=== PATIENT | female | born 1955 | race Two or more races ===

== ENCOUNTER 2016-04-19 08:02 | Inpatient (IN) | payer MEDICAID ==
[~2016-04-19] VITALS: Ht 152.4 cm; Wt 101.3 kg
[~2016-04-19 08:02] MED LIST: ASPI81CH43 PO; ATOR20TA50 PO; ENAL-3; GABA-494; GABA300C8 OR; GLIP-116 OR; INSLISPI SC; LANTUS; METF-316 OR; METO50TA7 PO
[2016-04-19 08:55] LABS: Basophils # (auto) 0 uL; Basophils % (auto) 0.2 % (0.0-2.0); Eosinophils # (auto) 0.2 uL; Eosinophils % (auto) 1.8 % (0.0-7.0); Hematocrit 36.3 % (36.0-46.0); Hemoglobin 11.6 g/dL (12.2-16.2); Lymphocytes % (auto) 16.9 % (10.0-50.0); Mean Corpuscular Hemoglobin 27.9 pg (28.0-32.0); Mean Corpuscular Volume 87.2 fL (80.0-100.0); Mean Platelet Volume 9.1 fL (7.4-10.4); Monocytes # (auto) 0.6 uL; Monocytes % (auto) 4.9 % (0.0-12.0); Neutrophils # (auto) 9.1 uL; Neutrophils % (auto) 76.2 % (37.0-80.0); Platelet Count (auto) 388 10^3/uL (140-450); Red Cell Distribution Width 13.7 % (11.6-16.0); White Blood Cell 11.9 10^3/uL (4.4-10.8)
[2016-04-19 09:37] LABS: Albumin 3.3 g/dL (3.4-5.0); BUN/Creatinine Ratio 18.8; Bilirubin, Total 0.6 mg/dL (0.2-1.0); Calcium 9.2 mg/dL (8.5-10.1); Potassium 4.6 mmol/L (3.5-5.1); Total Protein 7.6 g/dL (6.4-8.2)
[2016-04-19] MEDS ORDERED: ONDANSETRON HCL 4 MG/2 ML VIAL IV ONE (13:15)
[2016-04-19] MEDS ORDERED: MORPHINE SULF INJ 2 MG/ML SYRINGE 1ML IV ONE (13:15)
[2016-04-19] MEDS: metroNIDAZOLE 500MG/100ML 100 ML IV ONE ×2 (14:20→14:30)
[2016-04-19] MEDS ORDERED: DEXTROSE (50%) 50ML SYRG IV PRN (14:30)
[2016-04-19] MEDS ORDERED: MORPHINE SULF INJ 2 MG/ML SYRINGE 1ML IV PRN ×2 (14:30)
[2016-04-19] MEDS ORDERED: HYDROcodone-ACET 5/325MG TAB PO PRN (14:30)
[2016-04-19] MEDS ORDERED: NITROGLYCERIN 0.4 MG SL TAB SL PRN (14:30)
[2016-04-19] MEDS: SODIUM CHLORIDE 0.9% 1,000 ML IV SCH (14:43)
[2016-04-19] MEDS: cefTRIAXone 1GM/50ML D5W 50 ML IV ONE ×2 (14:59→15:00)
[2016-04-19] MEDS: ACCU-CHEK COMFORT CURVE STRIP VI SCH (17:40)
[2016-04-19] MEDS: InsuLIN REG 1unit/0.01ml Soln (100units/ml) SC SCH (17:41)
[2016-04-19] MEDS: ONDANSETRON HCL 4 MG/2 ML VIAL IV PRN (20:06)
[2016-04-19] MEDS: metroNIDAZOLE 500MG/100ML 100 ML IV SCH (21:31)
[2016-04-19 22:00] VITALS: BP 123/63
[2016-04-19] MEDS ORDERED: INSLANTI SC (22:22)
[2016-04-19 22:34] VITALS: BP 123/67
[2016-04-20] VITALS (7 sets, daily range): BP systolic 116–144; BP diastolic 59–73
[2016-04-20] MEDS: InsuLIN REG 1unit/0.01ml Soln (100units/ml) SC SCH ×4 (00:01→18:00)
[2016-04-20] MEDS: SODIUM CHLORIDE 0.9% 1,000 ML IV SCH ×3 (00:01→20:30)
[2016-04-20] MEDS: ACCU-CHEK COMFORT CURVE STRIP VI SCH ×4 (00:01→17:35)
[2016-04-20] MEDS: metroNIDAZOLE 500MG/100ML 100 ML IV SCH ×3 (06:28→21:56)
[2016-04-20] MEDS: ONDANSETRON HCL 4 MG/2 ML VIAL IV PRN ×2 (06:29→17:45)
[2016-04-20 06:39] LABS: Basophils # (auto) 0 uL; Basophils % (auto) 0.1 % (0.0-2.0); Eosinophils # (auto) 0.2 uL; Eosinophils % (auto) 2.6 % (0.0-7.0); Hematocrit 31.4 % (36.0-46.0); Hemoglobin 9.9 g/dL (12.2-16.2); Lymphocytes # (auto) 2.2 uL; Lymphocytes % (auto) 25.1 % (10.0-50.0); Mean Corpuscular Hemoglobin 27.6 pg (28.0-32.0); Mean Corpuscular Hgb Conc. 31.3 g/dL (32.0-36.0); Mean Platelet Volume 9.4 fL (7.4-10.4); Monocytes # (auto) 0.4 uL; Monocytes % (auto) 4.9 % (0.0-12.0); Neutrophils # (auto) 5.9 uL; Neutrophils % (auto) 67.3 % (37.0-80.0); Platelet Count (auto) 323 10^3/uL (140-450); Red Cell Distribution Width 14.1 % (11.6-16.0); White Blood Cell 8.7 10^3/uL (4.4-10.8)
[2016-04-20 06:49] LABS: INR 0.97 (0.9-1.15); Partial Thromboplastin Time 29.3 sec (22.64-33.71)
[2016-04-20 08:44] LABS: BUN/Creatinine Ratio 21.3; Calcium 8.4 mg/dL (8.5-10.1); Potassium 4.6 mmol/L (3.5-5.1)
[2016-04-20] MEDS: cefTRIAXone 1GM/50ML D5W 50 ML IV SCH (10:59)
[2016-04-21] VITALS (7 sets, daily range): BP systolic 136–179; BP diastolic 61–77
[2016-04-21] MEDS: ACCU-CHEK COMFORT CURVE STRIP VI SCH ×4 (00:12→18:19)
[2016-04-21] MEDS: InsuLIN REG 1unit/0.01ml Soln (100units/ml) SC SCH ×4 (00:15→18:19)
[2016-04-21] MEDS: ONDANSETRON HCL 4 MG/2 ML VIAL IV PRN ×2 (04:55→12:29)
[2016-04-21] MEDS: SODIUM CHLORIDE 0.9% 1,000 ML IV SCH ×2 (05:00→16:52)
[2016-04-21] MEDS: metroNIDAZOLE 500MG/100ML 100 ML IV SCH (06:07)
[2016-04-21 06:47] LABS: Basophils # (auto) 0 uL; Basophils % (auto) 0.5 % (0.0-2.0); Eosinophils # (auto) 0.3 uL; Eosinophils % (auto) 3.3 % (0.0-7.0); Hematocrit 31.6 % (36.0-46.0); Hemoglobin 9.9 g/dL (12.2-16.2); Lymphocytes # (auto) 2.7 uL; Mean Corpuscular Hemoglobin 27.4 pg (28.0-32.0); Mean Corpuscular Hgb Conc. 31.4 g/dL (32.0-36.0); Mean Corpuscular Volume 87.2 fL (80.0-100.0); Monocytes # (auto) 0.4 uL; Monocytes % (auto) 5.8 % (0.0-12.0); Neutrophils # (auto) 4.1 uL; Neutrophils % (auto) 54.4 % (37.0-80.0); Platelet Count (auto) 361 10^3/uL (140-450); Red Cell Distribution Width 13.7 % (11.6-16.0); White Blood Cell 7.6 10^3/uL (4.4-10.8)
[2016-04-21 08:25] LABS: BUN/Creatinine Ratio 15.1; Calcium 8.5 mg/dL (8.5-10.1); Potassium 3.8 mmol/L (3.5-5.1)
[2016-04-21] MEDS: cefTRIAXone 1GM/50ML D5W 50 ML IV SCH (09:11)
[2016-04-21] MEDS: metroNIDAZOLE 500 MG TAB PO SCH ×2 (13:06→22:18)
[2016-04-21] MEDS ORDERED: ENALAPRIL MALEATE 10 MG TAB PO ONE (16:30)
[2016-04-22] MEDS: ACCU-CHEK COMFORT CURVE STRIP VI SCH ×3 (00:20→11:55)
[2016-04-22] MEDS: InsuLIN REG 1unit/0.01ml Soln (100units/ml) SC SCH ×3 (00:23→11:55)
[2016-04-22] MEDS: SODIUM CHLORIDE 0.9% 1,000 ML IV SCH ×2 (02:30→12:30)
[2016-04-22 05:00] VITALS: BP 129/77
[2016-04-22] MEDS: metroNIDAZOLE 500 MG TAB PO SCH ×2 (05:54→14:00)
[2016-04-22 06:01] LABS: Basophils # (auto) 0 uL; Basophils % (auto) 0.5 % (0.0-2.0); Eosinophils # (auto) 0.2 uL; Eosinophils % (auto) 2.5 % (0.0-7.0); Hematocrit 32.2 % (36.0-46.0); Hemoglobin 10.2 g/dL (12.2-16.2); Lymphocytes # (auto) 2.9 uL; Lymphocytes % (auto) 35.1 % (10.0-50.0); Mean Corpuscular Hemoglobin 27.6 pg (28.0-32.0); Mean Corpuscular Hgb Conc. 31.6 g/dL (32.0-36.0); Mean Corpuscular Volume 87.4 fL (80.0-100.0); Mean Platelet Volume 8.9 fL (7.4-10.4); Monocytes # (auto) 0.4 uL; Monocytes % (auto) 5.5 % (0.0-12.0); Neutrophils # (auto) 4.6 uL; Neutrophils % (auto) 56.4 % (37.0-80.0); Platelet Count (auto) 344 10^3/uL (140-450); White Blood Cell 8.1 10^3/uL (4.4-10.8)
[2016-04-22 08:00] VITALS: BP 104/48
[2016-04-22] MEDS: ONDANSETRON HCL 4 MG/2 ML VIAL IV PRN (08:03)
[2016-04-22 09:00] VITALS: BP 139/67
[2016-04-22] MEDS: cefTRIAXone 1GM/50ML D5W 50 ML IV SCH (09:18)
[2016-04-22] MEDS ORDERED: ENALAPRIL MALEATE 10 MG TAB PO SCH (10:00)
[2016-04-22 11:50] VITALS: BP 146/94
[2016-04-22 13:03] VITALS: BP 139/67
== END 2016-04-22 15:20 | disposition home or self-care (01) | DRG 244 ==
LOC: ER 08:10 → TELE 08:11 → TELE-WESTW 19:36
PROVIDERS: ADMIT Internal Medicine; ATTEND Internal Medicine
DX: K57.32 Diverticulitis of large intestine without perforation or abscess without bleeding (principal); E11.22 Type 2 diabetes mellitus with diabetic chronic kidney disease; N18.3 Chronic kidney disease, stage 3 (moderate); E66.01 Morbid (severe) obesity due to excess calories; E11.65 Type 2 diabetes mellitus with hyperglycemia; I12.9 Hypertensive chronic kidney disease with stage 1 through stage 4 chronic kidney disease, or unspecified chronic kidney disease; E78.5 Hyperlipidemia, unspecified; Z86.73 Personal history of transient ischemic attack (TIA), and cerebral infarction without residual deficits; Z88.5 Allergy status to narcotic agent; Z79.82 Long term (current) use of aspirin; Z79.4 Long term (current) use of insulin; Z79.899 Other long term (current) drug therapy; Z98.51 Tubal ligation status; Z90.49 Acquired absence of other specified parts of digestive tract; Z82.49 Family history of ischemic heart disease and other diseases of the circulatory system; Z83.3 Family history of diabetes mellitus; Z68.41 Body mass index [BMI] 40.0-44.9, adult
CPT/HCPCS: 36415; 74176; 80048; 80053; 82962; 83036; 85025; 85610; 85730; 87493; 94761; 96365; 96367; 96375; J0696; J1815; J2405; J3490

== ENCOUNTER 2016-08-16 15:14 | Emergency (ER) | payer MEDICAID ==
[~2016-08-16] VITALS: Ht 152.4 cm; Wt 77.1 kg
[~2016-08-16 15:14] MED LIST changes: -GABA300C8 OR; -GLIP-116 OR; +INSLANTI SC; -INSLISPI SC; -LANTUS; -METF-316 OR
[2016-08-16 16:22] LABS: Basophils # (auto) 0 uL; Basophils % (auto) 0.4 % (0.0-2.0); Eosinophils # (auto) 0.1 uL; Eosinophils % (auto) 0.9 % (0.0-7.0); Hematocrit 37.7 % (36.0-46.0); Hemoglobin 12.4 g/dL (12.2-16.2); Lymphocytes # (auto) 2.3 uL; Lymphocytes % (auto) 25.1 % (10.0-50.0); Mean Corpuscular Hemoglobin 28.5 pg (28.0-32.0); Mean Corpuscular Hgb Conc. 33.1 g/dL (32.0-36.0); Mean Corpuscular Volume 86.3 fL (80.0-100.0); Mean Platelet Volume 8.9 fL (7.4-10.4); Monocytes # (auto) 0.4 uL; Monocytes % (auto) 4.8 % (0.0-12.0); Neutrophils # (auto) 6.3 uL; Neutrophils % (auto) 68.8 % (37.0-80.0); Platelet Count (auto) 414 10^3/uL (140-450); White Blood Cell 9.1 10^3/uL (4.4-10.8)
[2016-08-16 16:35] LABS: Potassium 4.2 mmol/L (3.5-5.1)
[2016-08-16 16:41] LABS: Albumin 3.2 g/dL (3.4-5.0); BUN/Creatinine Ratio 21.6; Calcium 9.4 mg/dL (8.5-10.1)
[2016-08-16 16:44] LABS: Bilirubin, Total 0.5 mg/dL (0.2-1.0); Total Protein 7.7 g/dL (6.4-8.2)
[2016-08-17 01:10] LABS: Urine Bilirubin Negative (Negative); Urine Blood Negative /uL (Negative); Urine Color Yellow (Yellow); Urine Glucose 1+ mg/dL (Normal); Urine Hyaline Cast FEW /lpf (0 - 2); Urine Ketone TRACE (Negative); Urine Mucus FEW (None Seen); Urine Nitrite Negative (Negative); Urine RBC 3 /hpf (0 - 4); Urine Squamous Epithelial Cell MOD /hpf (<5); Urine pH 5.5 (5.0-8.0)
[2016-08-17] MEDS ORDERED: ONDANSETRON HCL 4 MG/2 ML VIAL IV ONE (02:45)
[2016-08-17] MEDS ORDERED: cefTRIAXone SOD 500 MG VL IV ONE (02:45)
[2016-08-17] MEDS ORDERED: SODIUM CHLORIDE 0.9% 1,000 ML IV ONE (02:45)
[2016-08-17] MEDS ORDERED: cefTRIAXone 1GM/50ML D5W 50 ML IV ONE (03:00)
[2016-08-17] MEDS ORDERED: metroNIDAZOLE 500MG/100ML 100 ML IV ONE (03:15)
[2016-08-17 06:26] VITALS: BP 147/56
== END 2016-08-17 06:25 | disposition home or self-care (01) ==
LOC: EDBD 15:27 → ER 15:27
DX: K52.9 Noninfective gastroenteritis and colitis, unspecified (principal); K29.70 Gastritis, unspecified, without bleeding; N39.0 Urinary tract infection, site not specified; E11.9 Type 2 diabetes mellitus without complications; E78.5 Hyperlipidemia, unspecified; I10 Essential (primary) hypertension; R42 Dizziness and giddiness; Z88.6 Allergy status to analgesic agent; Z79.899 Other long term (current) drug therapy; Z79.4 Long term (current) use of insulin; Z79.82 Long term (current) use of aspirin; Z98.51 Tubal ligation status; Z90.49 Acquired absence of other specified parts of digestive tract
CPT/HCPCS: 36415; 74176; 80053; 81001; 82962; 83690; 85025; 93005; 96365; 96367; 96375; 99285; J0696; J2405; J3490; J7030

== ENCOUNTER 2017-12-24 13:24 | Emergency (ER) | payer MEDICAID ==
[~2017-12-24] VITALS: Ht 152.4 cm; Wt 77.1 kg
[~2017-12-24 13:24] MED LIST changes: -GABA-494; +GABA100C9; +MET5XLT PO; -METO50TA7 PO
[2017-12-24 16:07] VITALS: BP 134/70
[2017-12-24] MEDS ORDERED: KETOROLAC TROMETH 60MG/2ML VIAL IM ONE ×2 (16:45→16:46)
[2017-12-24] MEDS ORDERED: DEXAMETHASONE SOD PHOS 10MG/1ML VIAL INJ ONE (16:45)
[2017-12-24] MEDS ORDERED: DEXAMETHASONE SOD PHOS 10MG/1ML VIAL INJ IM ONE (16:45)
== END 2017-12-24 16:40 | disposition home or self-care (01) ==
LOC: ER 13:24
DX: M16.12 Unilateral primary osteoarthritis, left hip (principal); M54.32 Sciatica, left side; E11.9 Type 2 diabetes mellitus without complications; E78.5 Hyperlipidemia, unspecified; I10 Essential (primary) hypertension; Z90.49 Acquired absence of other specified parts of digestive tract; Z98.51 Tubal ligation status; Z88.6 Allergy status to analgesic agent
CPT/HCPCS: 73502; 96372; 99284; J1100; J1885

== ENCOUNTER 2018-01-10 15:28 | Emergency (ER) | payer MEDICAID ==
[~2018-01-10] VITALS: Ht 152.4 cm; Wt 77.1 kg
[2018-01-10 16:05] VITALS: BP 110/83
== END 2018-01-10 17:02 | disposition home or self-care (01) ==
LOC: ER 15:35
DX: L03.211 Cellulitis of face (principal); M25.552 Pain in left hip; E11.9 Type 2 diabetes mellitus without complications; E78.5 Hyperlipidemia, unspecified; I10 Essential (primary) hypertension; Z88.5 Allergy status to narcotic agent; Z79.4 Long term (current) use of insulin; Z79.82 Long term (current) use of aspirin; Z79.899 Other long term (current) drug therapy; Z86.73 Personal history of transient ischemic attack (TIA), and cerebral infarction without residual deficits
CPT/HCPCS: 82962

== ENCOUNTER 2018-11-27 18:14 | Emergency (ER) | payer MEDICAID ==
[~2018-11-27] VITALS: Ht 152.4 cm; Wt 81.6 kg
[~2018-11-27 18:14] MED LIST changes: -ENAL-3; +ENAL10TA2; -MET5XLT PO; +METO-6 PO
[2018-11-27 18:28] VITALS: BP 131/60
== END 2018-11-27 22:59 | disposition left against medical advice (07) ==
LOC: ER 18:15
DX: R51 Headache (principal); Z53.21 Procedure and treatment not carried out due to patient leaving prior to being seen by health care provider

== ENCOUNTER 2019-11-02 08:30 | Emergency (ER) | payer MEDICAID ==
[~2019-11-02] VITALS: Ht 152.4 cm; Wt 90.7 kg
[~2019-11-02 08:30] MED LIST changes: +ENAL10TA13; -ENAL10TA2
[2019-11-02 08:39] VITALS: BP 162/65
== END 2019-11-02 10:01 | disposition home or self-care (01) ==
LOC: ER 08:30
DX: J30.89 Other allergic rhinitis (principal); E11.9 Type 2 diabetes mellitus without complications; E78.5 Hyperlipidemia, unspecified; I10 Essential (primary) hypertension; Z88.5 Allergy status to narcotic agent

== ENCOUNTER 2019-11-09 14:58 | Emergency (ER) | payer MEDICAID ==
[2019-11-09 15:09] VITALS: BP 116/93
[2019-11-09] MEDS ORDERED: KETOROLAC TROMETH 60MG/2ML VIAL IM ONE (16:30)
== END 2019-11-09 17:28 | disposition home or self-care (01) ==
LOC: ER 14:58
DX: M54.31 Sciatica, right side (principal); E11.9 Type 2 diabetes mellitus without complications; E78.5 Hyperlipidemia, unspecified; I10 Essential (primary) hypertension
CPT/HCPCS: 93971; 96372; 99284; J1885; J7030

== ENCOUNTER 2021-11-28 11:34 | Emergency (ER) | payer MEDICARE, MEDICAID ==
[~2021-11-28] VITALS: Ht 157.5 cm; Wt 109.0 kg
[2021-11-28] MEDS ORDERED: METOCLOPRAMIDE HCL 5MG/ml INJ 2ml VIAL IV ONE (12:15)
[2021-11-28] MEDS ORDERED: diphenhdrAMINE HCL 50 MG/1 ML VL IV ONE (12:15)
[2021-11-28] MEDS ORDERED: LACTATED RINGER'S 1,000 ML IV ONE (12:15)
[2021-11-28] MEDS ORDERED: IOHEXOL 300 MG/ML 100ML BOTTLE IJ ONE (12:49)
[2021-11-28 13:20] LABS: Hematocrit 34.5 % (36.0-46.0); Hemoglobin 11.4 g/dL (12.2-16.2); Mean Corpuscular Hemoglobin 28.9 pg (28.0-32.0); Mean Corpuscular Volume 87.6 fL (80.0-100.0); Red Blood Cells 3.94 10^6/uL (4.0-5.20); Red Cell Distribution Width 14.9 % (11.8-14.3); White Blood Cell 9.9 10^3/uL (4.4-10.8)
[2021-11-28 13:21] LABS: Albumin 3.2 g/dL (3.4-5.0); Calcium 8.9 mg/dL (8.5-10.1); Potassium 4.1 mmol/L (3.5-5.1)
[2021-11-28 13:24] LABS: Band Neutrophils % (manual) 0; Basophils % (manual) 0 (0.0-2.0); Blast Cells 0; Metamyelocytes % 0; Myelocytes % 0; Promyelocytes % 0; Reactive Lymphocytes 0
[2021-11-28 13:26] LABS: BUN/Creatinine Ratio 17.4; Bilirubin, Total 0.4 mg/dL (0.2-1.0); Total Protein 6.8 g/dL (6.4-8.2)
[2021-11-28 13:46] LABS: Eosinophils % (manual) 6 (0-7); Lymphocytes % (manual) 18 (10.0-50.0); Monocytes % (manual) 3 (0-12)
[2021-11-28 15:08] LABS: Urine Bacteria FEW /hpf (None Seen); Urine Blood Negative /uL (Negative); Urine Hyaline Cast FEW /lpf (0 - 2); Urine Mucus FEW (None Seen); Urine Specific Gravity 1.014 (1.001-1.035); Urine WBC 1 /hpf (0 - 5)
[2021-11-28] MEDS ORDERED: METO-281 PO (16:02)
[2021-11-28 17:50] VITALS: BP 158/72
== END 2021-11-28 18:03 | disposition home or self-care (01) ==
LOC: EDBD 11:34 → ER 11:34
DX: R10.9 Unspecified abdominal pain (principal); R11.2 Nausea with vomiting, unspecified; I10 Essential (primary) hypertension; E11.9 Type 2 diabetes mellitus without complications; E78.5 Hyperlipidemia, unspecified; Z90.49 Acquired absence of other specified parts of digestive tract; Z79.82 Long term (current) use of aspirin; Z79.4 Long term (current) use of insulin; Z79.899 Other long term (current) drug therapy; Z88.5 Allergy status to narcotic agent
CPT/HCPCS: 36415; 36600; 71045; 74177; 80053; 81001; 82805; 83690; 84484; 85007; 85027; 93005; 96361; 96374; 96375; 99285; J1200; J2765; Q9967

== ENCOUNTER 2024-03-02 11:03 | Inpatient (IN) | payer MEDICARE, MEDICAID ==
[~2024-03-02] VITALS: Ht 152.4 cm; Wt 102.4 kg
[~2024-03-02 11:03] MED LIST changes: -ENAL10TA13; +ENAL1TAB47; +GABA-1308; -GABA100C9; +METO-281 PO
--- NOTE | 2024-03-02 11:42 | ED.PDOC ---
GI ASSESSMENT HPI Comments HPI: 68y F who presents to the ED for chief complaint of diarrhea. Pt has the following ED course. - pt has been having diarrhea for the past 3 days - pt has been having 2x episodes yesterday and 3x episodes today. - pt states diarrhea was yellow today in color but states today, it contained mucus and blood - pt has been having associated stomach cramps which have been persistent thought the days but denies any other assocaited symptoms - pt denies any recent sick contacts or changes to diet VITALS: Temp: 98.0 F RR: 20 02 sat : 96% on room air HR: 85 BP: 131/72 PMH: diabetes, hypertension, CVA, and hyperlipidemia. PSH: cholecystectomy, tubal ligation Social history: denies tobacco use, denies ETOH use, denies drug use Medications: Lantus insulin, glipizide, gabapentin, aspirin, Lipitor, enalapril, metoprolol, and metformin. Allergies: codeine Chief Complaint: Diarrhea Time Seen by MD: 12:28 Primary Care Provider: NONE Reviewed Notes: Medications, Allergies Allergies: Coded Allergies: Codeine (Verified Adverse Reaction, Severe, VOMITTING AND DROWSY, 12/19/13) Home Meds Active Scripts Metoclopramide Hcl (Reglan) 10 Mg Tab, 10 MG PO TID PRN for 10 Days, #30 TAB Prov:THAIS NICHOLAS MD 11/28/21 Metoprolol Succinate (Toprol Xl) 50 Mg Tab, 1 TAB PO DAILY, #30 TAB 0 Refills Prov:NITHIN CHAHAL MD 12/16/14 Aspirin (Asa) 81 Mg Ch, 81 MG PO DAILY, #30 Prov:NITHIN CHAHAL MD 12/16/14 Atorvastatin Calcium (ATORVASTATIN CALCIUM) 20 Mg Tb, 20 MG PO HS, #30 TAB Prov:NITHIN CHAHAL MD 12/16/14 Reported Medications Insulin Glargine (Lantus) 100 Units/Ml Vial, 50 MG SC DAILY, INJ 04/19/16 Enalapril Maleate (Enalapril Maleate) 10 Mg Tab, DAILY 01/04/12 Gabapentin (Gabapentin) 100 Mg Cap, DAILY 01/04/12 Information Source: Patient Mode of Arrival: Ambulatory Past Medical History PAST MEDICAL HISTORY: CVA, DM, High Lipids, HTN Surgical History: BTL, Cholecystectomy IMPLEMENTATION CONSULTANT History: No Pertinent IMPLEMENTATION CONSULTANT History Family History Family History: Reviewed,noncontributory to illness Social History Smoker: Non-Smoker Alcohol: Denies ETOH Use Drugs: Denies Drug Use Lives In: Home Was a procedure done? Was a procedure done?: No X-Ray, Labs, Meds, VS Vital Signs Date Time Temp Pulse Resp B/P (MAP) Pulse Ox O2 Delivery O2 Flow Rate FiO2 03/02/24 17:02 98.4 73 20 131/67 (88) 97 98.4 03/02/24 13:15 71 16 134/61 (85) 95 03/02/24 12:09 76 03/02/24 11:38 97.4 77 18 101/37 (58) 98 97.4 03/02/24 11:38 77 18 98 Room Air 03/02/24 11:27 98.0 85 20 131/72 (91) 96 Lab Test 03/02/24 14:30 03/02/24 13:41 03/02/24 11:45 Range/Units Sodium Level 140 140 136-145 mmol/L Potassium Level 4.3 5.0 3.5-5.1 mmol/L Chloride Level 108 H 106 98-107 mmol/L Carbon Dioxide Level 21 24 20-31 mmol/L Anion Gap 11 10 5-15 Blood Urea Nitrogen 20 25 H 9-23 mg/dL Creatinine 2.18 H 2.11 H 0.550-1.02 mg/dL Glomerular Filtration Rate Calc 24 25 >90 mL/min BUN/Creatinine Ratio 9.2 L 11.8 10.0-20.0 Serum Glucose 80 108 H 74-106 mg/dL Lactic Acid Level 2.2 *H 2.4 *H 0.4-2.0 mmol/L Calcium Level 10.2 10.6 H 8.7-10.4 mg/dL Lipase 28 25 12-53 U/L Urine Color Light-orange Yellow Urine Clarity Ex.turbid Clear Urine pH 5.5 5.0-9.0 Urine Specific [place] 1.014 1.001-1.035 Urine Protein 1+ H Negative Urine Ketones Negative Negative Urine Blood 3+ H Negative /uL Urine Nitrite Negative Negative Urine Bilirubin Negative Negative Urine Urobilinogen Normal Negative mg/dL Urine Leukocyte Esterase 3+ Negative /uL Urine RBC 564 0 - 4 /hpf Urine WBC 495 0 - 5 /hpf Urine Squamous Epithelial Cells Mod <5 /hpf Urine Bacteria Few H None Seen /hpf Urine Mucus Few None Seen Urine Glucose Normal Normal mg/dL White Blood Count 11.8 H 4.4-10.8 10^3/uL Red Blood Count 4.21 4.0-5.20 10^6/uL Hemoglobin 12.0 L 12.2-16.2 g/dL Hematocrit 36.9 36.0-46.0 % Mean Corpuscular Volume 87.8 80.0-100.0 fL Mean Corpuscular Hemoglobin 28.6 28.0-32.0 pg Mean Corpuscular Hemoglobin Concent 32.6 32.0-36.0 g/dL Red Cell Distribution Width 15.0 H 11.8-14.3 % Platelet Count 394 140-450 10^3/uL Mean Platelet Volume 8.7 6.9-10.8 fL Neutrophils (%) (Auto) 78.4 37.0-80.0 % Lymphocytes (%) (Auto) 16.1 10.0-50.0 % Monocytes (%) (Auto) 4.1 0.0-12.0 % Eosinophils (%) (Auto) 0.7 0.0-7.0 % Basophils (%) (Auto) 0.7 0.0-2.0 % Neutrophils # (Auto) 9.2 H 1.6-8.6 10 ^3/uL Lymphocytes # (Auto) 1.9 0.4-5.4 10 ^3/uL Monocytes # (Auto) 0.5 0-1.3 10 ^3/uL Eosinophils # (Auto) 0.1 0-0.8 10 ^3/uL Basophils # (Auto) 0.1 0-0.2 10 ^3/uL Nucleated Red Blood Cells 0.0 % Prothrombin Time 10.9 9.3-11.8 sec Prothrombin Time INR 1.03 0.9-1.15 Activated Partial Thromboplast Time 30.2 24.5-34.5 SEC Total Bilirubin 0.6 0.2-1.0 mg/dL Aspartate Amino Transferase (AST) 22 13-40 U/L Alanine Aminotransferase (ALT) 12 7-40 U/L Alkaline Phosphatase 108 46-116 U/L Troponin I High Sensitivity 6 </=34 ng/L Total Protein 7.1 5.7-8.2 g/dL Albumin 4.4 3.2-4.8 g/dL Current Medications Medications (Trade) Dose Ordered Sig/Lynnette Route Start Time Stop Time Status Last Admin Pantoprazole Sodium (Protonix) 40 mg ONCE ONCE IV 03/02/24 11:30 03/02/24 11:31 DC 03/02/24 11:56 Sodium Chloride 1,000 ml @ 1,000 mls/hr Q1H ONCE IV 03/02/24 11:30 03/02/24 12:29 DC 03/02/24 11:50 Ondansetron HCl (Zofran) 4 mg ONCE ONCE IV 03/02/24 11:45 03/02/24 11:46 DC 03/02/24 11:56 Sodium Chloride 1,000 ml @ 1,000 mls/hr Q1H ONCE IV 03/02/24 16:30 03/02/24 17:29 DC 03/02/24 16:30 [place] [id number] Ph: [phone] DIAGNOSTIC IMAGING Diagnostic Imaging Report : [id number] Signed PATIENT: TONYA LOWRY ACCT: [id number] UNIT: [id number] : 1955 LOC: ER ROOM / BED: / AGE / SEX: 68 / F ADM STATUS: REG ER SERVICE ORDERING PHYSICIAN: SANIYA SANTORO DO PROCEDURE(s): ABPL - CT AB PEL WO CON-NO ORAL OR IV REASON: ABD PAIN, RECTAL BLEED ORDER NUMBER(s): [id number], ACCESSION NUMBER(s): [id number] CT ABDOMEN AND PELVIS WITHOUT CONTRAST CLINICAL HISTORY: ABD PAIN, RECTAL BLEED TECHNIQUE: Multiple contiguous axial images of the abdomen and pelvis without intravenous contrast. The images were reformatted degenerate coronal and sagittal reconstructions. All CT scans at this medical facility are performed using dose modulation techniques as appropriate to a performed exam including the following:Automated exposure control was utilized; adjustment of the MA and/or KV according to patient size; and use of iterative reconstruction technique. Radiation Dose Information: CT Dose: CTDI volume is 24 mGy. Dose-length product is 13 68 mGy*cm Comparison: None FINDINGS: Evaluation of the abdomen and pelvis is limited without intravenous contrast. Gallbladder is surgically absent. There is a 1.3 cm hypodense right adrenal gland nodule compatible with an adenoma. The left adrenal gland appears within normal limits. The liver, pancreas, kidneys, and spleen appear within normal limits. There is no gross evidence of abdominal lymphadenopathy. There is no free fluid or free air. The stomach grossly appears unremarkable. The small and large bowel loops demonstrate normal caliber. There are scattered diverticula in the distal colon without evidence of acute diverticulitis. The abdominal aorta and IVC appear within normal limits. The bladder appears unremarkable for the degree of distention. Pelvic organ appears within normal limits. There is no gross evidence of a pelvic mass. There is no free fluid collection. Lung bases are clear. There is no acute osseous abnormality. IMPRESSION: 1. There is no acute process in the abdomen and pelvis. 2. 1.3 cm hypodense right adrenal gland adenoma. 3. Cholecystectomy. HS:Y ATED BY: FRANK LAWLER MD DICTATED DATE/TIME: 03/02/24 115 SIGNED BY: FRANK LAWLER MD SIGNED DATE/TIME: 03/02/241155 CC: Patient Education/Counseling: Diagnosis, Treatment Family Education/Counseling: No Family Present Comments MDM: Patient presented with the above HPI.----- diarrhea-- -workup was initiated. patient was found with the above mentioned diagnosis. the following medications were ordered: Zofran, 2x IV fluids, pantoprazole, the following tests were ordered: CT abdomen and pelvis without contrast, EKG x1, UA, troponin x1, PT PTT, lipase, lactic acid, CBC, CMP, PT with, Patient ED course and VS have been stabilized. Patient has been reassessed in the ED and remained in a stable condition. Patient has been observed in the ED adequate length of time to insure improvement/stability. Escalation of care considered: Consideration of escalation to observation or admission. patient was ADMITTED to the medicine team for further evaluation and treatment of their presentation. All the reports of any imaging studies that were ordered by myself were reviewed by myself. Departure 1 Departure Time of Disposition: 16:15 Impression: Primary Impression: Acute abdominal pain Additional Impressions: Nausea vomiting and diarrhea Elevated lactic acid level Acute renal insufficiency Dehydration Disposition: ADMITTED INPATIENT Admit to: Tele Condition: Guarded Additional Instructions: below is a copy of your radiology report for follow up: [facility] [id number] [facility] [id number] Ph: [phone] DIAGNOSTIC IMAGING Diagnostic Imaging Report : [id number] Signed PATIENT: TONYA LOWRY ACCT: [id number] UNIT: [id number] : 1955 LOC: ER ROOM / BED: / AGE / SEX: 68 / F ADM STATUS: REG ER SERVICE [id number] ORDERING PHYSICIAN: SANIYA SANTORO DO PROCEDURE(s): ABPL - CT AB PEL WO CON-NO ORAL OR IV REASON: ABD PAIN, RECTAL BLEED ORDER NUMBER(s): [id number], ACCESSION NUMBER(s): [id number] CT ABDOMEN AND PELVIS WITHOUT CONTRAST CLINICAL HISTORY: ABD PAIN, RECTAL BLEED TECHNIQUE: Multiple contiguous axial images of the abdomen and pelvis without intravenous contrast. The images were reformatted degenerate coronal and sagittal reconstructions. All CT scans at this medical facility are performed using dose modulation techniques as appropriate to a performed exam including the following:Automated exposure control was utilized; adjustment of the MA and/or KV according to patient size; and use of iterative reconstruction technique. Radiation Dose Information: CT Dose: CTDI volume is 24 mGy. Dose-length product is 13 68 mGy*cm Comparison: None FINDINGS: Evaluation of the abdomen and pelvis is limited without intravenous contrast. Gallbladder is surgically absent. There is a 1.3 cm hypodense right adrenal gland nodule compatible with an adenoma. The left adrenal gland appears within normal limits. The liver, pancreas, kidneys, and spleen appear within normal limits. There is no gross evidence of abdominal lymphadenopathy. There is no free fluid or free air. The stomach grossly appears unremarkable. The small and large bowel loops demonstrate normal caliber. There are scattered diverticula in the distal colon without evidence of acute diverticulitis. The abdominal aorta and IVC appear within normal limits. The bladder appears unremarkable for the degree of distention. Pelvic organ appears within normal limits. There is no gross evidence of a pelvic mass. There is no free fluid collection. Lung bases are clear. There is no acute osseous abnormality. IMPRESSION: 1. There is no acute process in the abdomen and pelvis. 2. 1.3 cm hypodense right adrenal gland adenoma. 3. Cholecystectomy. HS:Y ATED BY: FRANK LAWLER MD DICTATED DATE/TIME: 03/02/24 1156 SIGNED BY: FRANK LAWLER MD SIGNED DATE/TIME: 03/02/24 1156 CC: I personally scribed for SANIYA SANTORO DO ([email or web address]) on 03/02/24 at 11:42. Electronically submitted by Arash Jay ([email or web address] I personally scribed for SANIYA SANTORO DO ([email or web address]) on 03/02/24 at 12:37. Electronically submitted by Arash Jay ([facility] I personally scribed for SANIYA SANTORO DO ([email or web address]) on 03/02/24 at 12:44. Electronically submitted by Arash Jay ([facility]). I personally scribed for SANIYA SANTORO DO ([email or web address]) on 03/02/24 at 15:35. Electronically submitted by Arash Jay ([facility]). I personally scribed for SANIYA SANTORO DO ([email or web address]) on 03/02/24 at 20:35. Electronically submitted by Arash Jay ([facility]). SANIYA SANTORO DO Mar 02, 2024 11:42
[2024-03-02] MEDS: SODIUM CHLORIDE 0.9% 1,000 ML IV ONE ×2 (11:50→16:30)
[2024-03-02] MEDS: ONDANSETRON HCL 4 MG/2 ML VIAL IV ONE (11:56)
[2024-03-02] MEDS: PANTOPRAZOLE 40 MG/10 ML VIAL INJ IV ONE (11:56)
--- NOTE | 2024-03-02 11:57 | DVH ---
CT ABDOMEN AND PELVIS WITHOUT CONTRAST CLINICAL HISTORY: ABD PAIN, RECTAL BLEED TECHNIQUE: Multiple contiguous axial images of the abdomen and pelvis without intravenous contrast. The images were reformatted degenerate coronal and sagittal reconstructions. All CT scans at this medical facility are performed using dose modulation techniques as appropriate t o a performed exam including the following:Automated exposure control was utilized; adjustment of the MA and/or KV according to patient size; and use of iterative reconstruction technique. Radiation Dose Information: CT Dose: CTDI volume is 24 mGy. Dose-length product is 13 68 mGy*cm Comparison: None FINDINGS: Evaluation of the abdomen and pelvis is limited without intravenous contrast. Gallbladder is surgically absent. There is a 1.3 cm hypodense right adrenal gland nodule compatible w ith an adenoma. The left adrenal gland appears within normal limits. The liver, pancreas, kidneys , and spleen appear within normal limits. There is no gross evidence of abdominal lymphadenopathy. There is no free fluid or free air. The stomach grossly appears unremarkable. The small and large bowel loops demonstrate normal caliber . There are scattered diverticula in the distal colon without evidence of acute diverticulitis. The abdominal aorta and IVC appear within normal limits. The bladder appears unremarkable for the degree of distention. Pelvic organ appears within normal [place] its. There is no gross evidence of a pelvic mass. There is no free fluid collection. Lung bases are clear. There is no acute osseous abnormality. IMPRESSION: 1. There is no acute process in the abdomen and pelvis. 2. 1.3 cm hypodense right adrenal gland adenoma. 3. Cholecystectomy. HS:Y
[2024-03-02 12:06] LABS: Basophils # (auto) 0.1 10 ^3/uL (0-0.2); Basophils % (auto) 0.7 % (0.0-2.0); Eosinophils # (auto) 0.1 10 ^3/uL (0-0.8); Eosinophils % (auto) 0.7 % (0.0-7.0); Hematocrit 36.9 % (36.0-46.0); Lymphocytes # (auto) 1.9 10 ^3/uL (0.4-5.4); Lymphocytes % (auto) 16.1 % (10.0-50.0); Mean Corpuscular Hemoglobin 28.6 pg (28.0-32.0); Mean Corpuscular Hgb Conc. 32.6 g/dL (32.0-36.0); Mean Corpuscular Volume 87.8 fL (80.0-100.0); Monocytes # (auto) 0.5 10 ^3/uL (0-1.3); Monocytes % (auto) 4.1 % (0.0-12.0); Neutrophils # (auto) 9.2 10 ^3/uL (1.6-8.6); Neutrophils % (auto) 78.4 % (37.0-80.0); Platelet Count (auto) 394 10^3/uL (140-450); Red Blood Cells 4.21 10^6/uL (4.0-5.20); White Blood Cell 11.8 10^3/uL (4.4-10.8)
[2024-03-02 12:21] LABS: INR 1.03 (0.9-1.15); Partial Thromboplastin Time 30.2 SEC (24.5-34.5); Prothrombin Time 10.9 sec (9.3-11.8)
[2024-03-02 12:42] LABS: Alanine Aminotransferase 12 U/L (7-40); Albumin 4.4 g/dL (3.2-4.8); Alkaline Phosphatase 108 U/L (46-116); Anion Gap 10 (5-15); Aspartate Aminotransferase 22 U/L (13-40); BUN/Creatinine Ratio 11.8 (10.0-20.0); Bilirubin, Total 0.6 mg/dL (0.2-1.0); Carbon Dioxide 24 mmol/L (20-31); Chloride 106 mmol/L (98-107); Sodium 140 mmol/L (136-145); Total Protein 7.1 g/dL (5.7-8.2)
[2024-03-02 12:56] LABS: Lactic Acid w/Reflex 2.4 mmol/L (0.4-2.0)
[2024-03-02 13:01] LABS: Blood Urea Nitrogen 25 mg/dL (9-23); Calcium 10.6 mg/dL (8.7-10.4); Glucose 108 mg/dL (74-106)
[2024-03-02 13:25] LABS: Lipase 25 U/L (12-53)
[2024-03-02 15:53] LABS: Potassium 4.3 mmol/L (3.5-5.1); Sodium 140 mmol/L (136-145)
[2024-03-02 15:54] LABS: Anion Gap 11 (5-15); Calcium 10.2 mg/dL (8.7-10.4); Carbon Dioxide 21 mmol/L (20-31)
[2024-03-02 15:59] LABS: BUN/Creatinine Ratio 9.2 (10.0-20.0); Blood Urea Nitrogen 20 mg/dL (9-23); Glucose 80 mg/dL (74-106)
[2024-03-02 16:01] LABS: Chloride 108 mmol/L (98-107)
[2024-03-02] MEDS: SODIUM CHLORIDE 0.9% 1,000 ML IV SCH (17:30)
[2024-03-02] MEDS ORDERED: ONDANSETRON HCL 4 MG/2 ML VIAL IV PRN (17:30)
--- NOTE | 2024-03-02 17:35 | DVHHP2 ---
History of Present Illness Reason for Visit: Abdominal cramping and blood in stool History of Present Illness Haleigh Sneed is a 68-year-old female with past medical history of hypertension, hyperlipidemia, diabetes, diverticulitis, morbid obesity, and CVA with no deficits who presents to the ED with abdominal cramping and diarrhea x2 days. Patient reports that she had blood in her stool 3 times today and several yesterday. She states that she was at the social insurance adviser's office and felt some cramping then went to the bathroom had a bowel movement and noticed some mucus and blood in her stool states that it was noticeable and streak like. Patient states that there are no aggravating factors however relieving factors are going to have a bowel movement. Patient denies any chest pain, shortness of breath, fever, chills, nausea, vomiting, lightheadedness, and dizziness. 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) Endocrine: Diabetes Past Medical History Morbid obesity and diverticulitis Past Surgical History: Cholecystectomy, Tubal Ligation Family History: DM, Hypertension, Other (Both mom and dad diabetes and hypertension) Smoke: No ALCOHOL: none Drugs: None Lives: with Family Domestic Violence: Neg Review of Systems Constitutional: No: Fever, Chills, Sweats, Weakness, Malaise, Other Eyes: No: Pain, Vision change, Conjunctivae inflammation, Eyelid inflammation, Other, Redness ENT: No: Ear pain, Ear discharge, Nose pain, Nose discharge, Nose congestion, Mouth pain, Mouth swelling, Throat pain, Throat swelling, Other Respiratory: No: Cough, Dry, Shortness of breath, SOB with excertion, Wheezing, Hemoptysis, Pleuritic Pain, Sputum, Wheezing, Other Cardiovascular: No: Chest Pain, Palpitations, Orthopnea, Paroxysmal Noc. Dyspnea, Edema, Lt Headedness, Other Gastrointestinal: Diarrhea, Other (Abdominal cramping); No: Nausea, Vomiting, Abdominal Pain, Constipation, Melena, Hematochezia Genitourinary: No Dysuria, No Frequency, No Incontinence, No Hematuria, No Retention, No Other Musculoskeletal: No: other, neck pain, shoulder pain, arm pain, back pain, hand pain, leg pain, foot pain Skin: No: Rash, Lesions, Jaundice, Bruising, Other Neurological: No: Weakness, Numbness, Incoordination, Change in speech, Co nfusion, Seizures, Other Allergies: Coded Allergies: Codeine (Verified Adverse Reaction, Severe, VOMITTING AND DROWSY, 03/03/24) Medications Current Medications Medications Dose Ordered Sig/Lynnette Route Start Time Stop Time Status Last Admin Dose Admin Enalapril Maleate 10 mg DAILY PO 03/03/24 10:00 UNV Exam Vital Signs Vital Signs Date Time Temp Pulse Resp B/P (MAP) Pulse Ox O2 Delivery O2 Flow Rate FiO2 03/02/24 17:02 98.4 73 20 131/67 (88) 97 98.4 03/02/24 11:38 Room Air General Appearance: Alert, Oriented X3, Cooperative, No acute distress HEENT: Atraumatic, PERRLA, EOMI, Mucous membr. moist/pink Respiratory: Clear to auscultation, Normal air movement Cardiovascular: Regular rate, Normal S1, Normal S2, No murmurs Abdominal: Soft, No hepatospenomegaly, No masses Extremities: No clubbing, No cyanosis, No edema, Normal pulses, No tenderness/swelling Skin: No rashes, No breakdown, No significant lesion Neuro: Normal gait, Normal speech, Strength at 5/5 X4 ext, Normal tone, Sensation intact Psych/Mental Status: Mental status NL, Mood NL Labs/Xrays Labs Test 03/02/24 14:30 03/02/24 11:45 Range/Units Sodium Level 140 136-145 mmol/L Potassium Level 4.3 3.5-5.1 mmol/L Chloride Level 108 H 98-107 mmol/L Carbon Dioxide Level 21 20-31 mmol/L Anion Gap 11 5-15 Blood Urea Nitrogen 20 9-23 mg/dL Creatinine 2.18 H 0.550-1.02 mg/dL Glomerular Filtration Rate Calc 24 >90 mL/min BUN/Creatinine Ratio 9.2 L 10.0-20.0 Serum Glucose 80 74-106 mg/dL Lactic Acid Level 2.2 *H 0.4-2.0 mmol/L Calcium Level 10.2 8.7-10.4 mg/dL White Blood Count 11.8 H 4.4-10.8 10^3/uL Red Blood Count 4.21 4.0-5.20 10^6/uL Hemoglobin 12.0 L 12.2-16.2 g/dL Hematocrit 36.9 36.0-46.0 % Mean Corpuscular Volume 87.8 80.0-100.0 fL Mean Corpuscular Hemoglobin 28.6 28.0-32.0 pg Mean Corpuscular Hemoglobin Concent 32.6 32.0-36.0 g/dL Red Cell Distribution Width 15.0 H 11.8-14.3 % Platelet Count 394 140-450 10^3/uL Mean Platelet Volume 8.7 6.9-10.8 fL Neutrophils (%) (Auto) 78.4 37.0-80.0 % Lymphocytes (%) (Auto) 16.1 10.0-50.0 % Monocytes (%) (Auto) 4.1 0.0-12.0 % Eosinophils (%) (Auto) 0.7 0.0-7.0 % Basophils (%) (Auto) 0.7 0.0-2.0 % Neutrophils # (Auto) 9.2 H 1.6-8.6 10 ^3/uL Lymphocytes # (Auto) 1.9 0.4-5.4 10 ^3/uL Monocytes # (Auto) 0.5 0-1.3 10 ^3/uL Eosinophils # (Auto) 0.1 0-0.8 10 ^3/uL Basophils # (Auto) 0.1 0-0.2 10 ^3/uL Nucleated Red Blood Cells 0.0 % Prothrombin Time 10.9 9.3-11.8 sec Prothrombin Time INR 1.03 0.9-1.15 Activated Partial Thromboplast Time 30.2 24.5-34.5 SEC Total Bilirubin 0.6 0.2-1.0 mg/dL Aspartate Amino Transferase (AST) 22 13-40 U/L Alanine Aminotransferase (ALT) 12 7-40 U/L Alkaline Phosphatase 108 46-116 U/L Troponin I High Sensitivity 6 </=34 ng/L Total Protein 7.1 5.7-8.2 g/dL Albumin 4.4 3.2-4.8 g/dL Lipase 25 12-53 U/L CT ABDOMEN AND PELVIS WITHOUT CONTRAST CLINICAL HISTORY: ABD PAIN, RECTAL BLEED TECHNIQUE: Multiple contiguous axial images of the abdomen and pelvis without intravenous contrast. The images were reformatted degenerate coronal and sagittal reconstructions. All CT scans at this medical facility are performed using dose modulation techniques as appropriate to a performed exam including the following:Automated exposure control was utilized; adjustment of the MA and/or KV according to patient size; and use of iterative reconstruction technique. Radiation Dose Information: CT Dose: CTDI volume is 24 mGy. Dose-length product is 13 68 mGy*cm Comparison: None FINDINGS: Evaluation of the abdomen and pelvis is limited without intravenous contrast. Gallbladder is surgically absent. There is a 1.3 cm hypodense right adrenal gland nodule compatible with an adenoma. The left adrenal gland appears within normal limits. The liver, pancreas, kidneys, and spleen appear within normal limits. There is no gross evidence of abdominal lymphadenopathy. There is no free fluid or free air. The stomach grossly appears unremarkable. The small and large bowel loops demonstrate normal caliber. There are scattered diverticula in the distal colon without evidence of acute diverticulitis. The abdominal aorta and IVC appear within normal limits. The bladder appears unremarkable for the degree of distention. Pelvic organ appears within normal limits. There is no gross evidence of a pelvic mass. There is no free fluid collection. Lung bases are clear. There is no acute osseous abnormality. IMPRESSION: 1. There is no acute process in the abdomen and pelvis. 2. 1.3 cm hypodense right adrenal gland adenoma. 3. Cholecystectomy. Assessment/Plan Assessment/Plan Assessment/Plan: Rule out GIB Leukocytosis GI cx ct a/p noted labs pain management antiemetics ua am labs lipase IV antibiotics Occult stool PT/INR EKG Lactic acid Hx of diverticulitis monitor CVA with no deficits monitor 1.3 cm hypodense right adrenal gland adenoma Outpatient follow-up morbid obesity Counseled patient on lifestyle modifications, diet, and exercise FEN/PPX NPO IVf protonix DVT ppx not indicated patient ambulating - bleeding Admit to med surg Discussed plan of care with patient and nurse Home medications reconciled Plan discussed with: Patient My Orders Orders - BRYAN COTTER Procedure Category Date Status Time * Gi Dvh Atomizer Assembler CONS 03/02/24 Transmitted 17:17 Enalapril Tablet PHA 03/03/24 Logged (Vasotec Tablet) 10:00 Admit ADMIT 03/02/24 Transmitted 17:27 Allergies OCHOA 03/02/24 Transmitted 17:27 Code Status CODE 03/02/24 Transmitted 17:27 0.9% Ns 1000 Ml PHA 03/02/24 Transmitted 17:30 Ondansetron Hcl PHA 03/02/24 Transmitted (Zofran) 17:30 Complete Blood Count LAB 03/03/24 Verified 04:00 Comprehensive LAB 03/03/24 Verified Metabolic Panel 04:00 Npo (Nothing By DIET 03/02/24 Transmitted Mouth) Diet Dinner Acetaminophen Tablet PHA 03/02/24 Transmitted (Tylenol Tablet) 17:30 Date of Service: Mar 02, 2024 Billing Provider: BRYAN COTTER Common Visit Codes: [id number] INP/OBS CARE (MOD) BRYAN COTTER Mar 02, 2024 17:35
[2024-03-02] MEDS: metroNIDAZOLE 500MG/100ML 100 ML IV ONE (19:28)
[2024-03-02 19:47] VITALS: PULSE 72; RESP 16; O2SAT 95
[2024-03-02 20:00] LABS: Urine Bacteria FEW /hpf (None Seen); Urine Blood 3+ /uL (Negative); Urine Clarity Ex.Turbid (Clear); Urine Color Light-Orange (Yellow); Urine Mucus FEW (None Seen); Urine Protein, UAD 1+ (Negative); Urine Specific Gravity 1.014 (1.001-1.035); Urine Urobilinogen Normal (Negative); Urine WBC 495 /hpf (0 - 5); Urine pH 5.5 (5.0-9.0)
[2024-03-02 22:10] VITALS: BP 141/57; PULSE 76; RESP 18; TEMP 97.3
[2024-03-02] MEDS ORDERED: DEXTROSE (50%) 50ML SYRG IV PRN (22:30)
[2024-03-02 23:43] VITALS: BP 113/53; PULSE 72; RESP 14; TEMP 97.9; O2SAT 96
[2024-03-03] VITALS (8 sets, daily range): BP systolic 113–172; BP diastolic 40–75; PULSE 66–85; RESP 14–20; TEMP 97.8–98.2; O2SAT 96–98
[2024-03-03] MEDS: ACCU-CHEK COMFORT CURVE STRIP VI SCH (00:08)
[2024-03-03] MEDS: InsuLIN REG 1unit/0.01ml Soln (100units/ml) SC SCH (00:10)
[2024-03-03] MEDS: metroNIDAZOLE 500MG/100ML 100 ML IV SCH (02:08)
[2024-03-03 07:34] LABS: Basophils # (auto) 0 10 ^3/uL (0-0.2); Basophils % (auto) 0.4 % (0.0-2.0); Eosinophils # (auto) 0.2 10 ^3/uL (0-0.8); Eosinophils % (auto) 1.9 % (0.0-7.0); Hematocrit 30.8 % (36.0-46.0); Hemoglobin 10.1 g/dL (12.2-16.2); Lymphocytes # (auto) 1.9 10 ^3/uL (0.4-5.4); Lymphocytes % (auto) 22.3 % (10.0-50.0); Mean Corpuscular Hemoglobin 28.9 pg (28.0-32.0); Mean Corpuscular Hgb Conc. 32.9 g/dL (32.0-36.0); Mean Corpuscular Volume 87.9 fL (80.0-100.0); Monocytes # (auto) 0.6 10 ^3/uL (0-1.3); Monocytes % (auto) 6.7 % (0.0-12.0); Neutrophils % (auto) 68.7 % (37.0-80.0); Nucleated Red Blood Cells % 0.1 %; Platelet Count (auto) 273 10^3/uL (140-450); Red Cell Distribution Width 14.6 % (11.8-14.3); White Blood Cell 8.7 10^3/uL (4.4-10.8)
[2024-03-03 07:40] LABS: Albumin 3.6 g/dL (3.2-4.8); Alkaline Phosphatase 87 U/L (46-116); Anion Gap 6 (5-15); BUN/Creatinine Ratio 10.1 (10.0-20.0); Bilirubin, Total 0.4 mg/dL (0.2-1.0); Blood Urea Nitrogen 22 mg/dL (9-23); Calcium 9.2 mg/dL (8.7-10.4); Carbon Dioxide 23 mmol/L (20-31); Glucose 77 mg/dL (74-106); Potassium 4.5 mmol/L (3.5-5.1); Sodium 142 mmol/L (136-145); Total Protein 5.9 g/dL (5.7-8.2)
[2024-03-03 07:41] LABS: Alanine Aminotransferase < 9 U/L (7-40); Aspartate Aminotransferase 12 U/L (13-40); Chloride 113 mmol/L (98-107)
[2024-03-03] MEDS: PANTOPRAZOLE 40 MG/10 ML VIAL INJ IV SCH (09:11)
[2024-03-03] MEDS: ENALAPRIL MALEATE 10 MG TAB PO SCH (09:11)
[2024-03-03] MEDS: hydrALAZINE HCL 20 MG/ML VL IV ONE (12:01)
--- NOTE | 2024-03-03 14:36 | DVHPNRES ---
Progress Note Date Seen: Mar 03, 2024 Resident Creating Document: TANMAY PIRES RESIDENT Medical Necessity Reason Pt with a Central, PICC or Fol: No Subjective Review of Systems 68-year-old female with past medical history of diabetes mellitus type 2, hypertension, hyperlipidemia, diverticular disease, stroke presented with complaints of lower abdominal pain with associated with cramping and diarrhea for last two days. Patient also mentioned blood when she was wiping after passing stools. Patient denied any nausea, vomiting, chest pain Patient seen and examined at bedside. Patient is still mentioning of having diarrhea. Changes from previous H/P or p: No Changes Objective vital signs Vital Sign Date Time Temp Pulse Resp B/P (MAP) Pulse Ox O2 Delivery O2 Flow Rate FiO2 03/03/24 13:00 97.8 70 14 172/70 (104) 98 97.8 03/03/24 08:00 Room Air* 0 21 Total Intake and Output 03/02/24 03/02/24 03/03/24 15:00 23:00 07:00 Intake Total 1000 ml 100 ml Balance 1000 ml 100 ml medications Current Medications Medications Dose Ordered Sig/Lynnette Route Start Time Stop Time Status Last Admin Dose Admin Enalapril Maleate 10 mg DAILY PO 03/03/24 10:00 03/03/24 09:11 10 MG Ondansetron HCl 4 mg Q4HP PRN IV 03/02/24 17:30 Acetaminophen 650 mg Q6HP PRN PO 03/02/24 17:30 Metronidazole 100 ml @ 100 mls/hr Q8H IV 03/03/24 02:00 03/03/24 09:12 100 MLS/HR Pantoprazole Sodium 40 mg DAILY IV 03/03/24 10:00 03/03/24 09:11 40 MG Diagnostic Test (Pha) 1 strip IQ4HR 03/03/24 00:00 03/03/24 12:02 1 STRIP Insulin Human Regular IQ4HR SC 03/03/24 00:00 03/03/24 00:10 3 UNITS Dextrose 50 ml UD PRN IV 03/02/24 22:30 Examination Examination General Appearance: Alert, Oriented X3, Cooperative, No acute distress HEENT: EOMI Respiratory: Clear to auscultation, Normal air movement Cardiovascular: Regular rate, Normal S1, Normal S2 Abdominal: Lower abdominal mild tenderness, Normal bowel sounds Extremities: No cyanosis, No edema, Normal pulses, No tenderness/swelling Skin: No rashes, No breakdown Neuro: Normal speech and tone laboratory and microbiology Laboratory Tests 03/03/24 07:09 Test 03/03/24 07:09 Range/Units Serum Glucose 77 74-106 mg/dL Labs and/or images reviewed: Labs reviewed by me, Image(s) reviewed by me Problem List/Assessment/Plan Problem List/Assessment/Plan Assessment/Plan #intractable diarrhea -IV fluids -clear liquid diet -stool studies -Iv ceftriaxone plus IV metronidazole -c.difficile #hematochezia, history of diverticular disease -IV Protonix -CT abd/pelvis -GI on board #DM2 -sliding scale insulin #HTN -continue home medication #HLD -. Resume home medication on discharge #history of stroke -patient stopped taking aspirin long time ago, currently on hold because of GI bleed # 1.3 cm hypodense right adrenal gland adenoma. -outpatient follow up Code status discussed with the patient for >21 min, FULL CODE Case discussion with Dr Donato Plan discussed with: Patient, Other My Orders My Orders Orders - TANMAY PIRES RESIDENT Procedure Category Date Status Time Clear Liq Diet DIET 03/03/24 Transmitted Dinner Date of Service: Mar 03, 2024 Billing Provider: MITZI DONATO MD Common Visit Codes: [id number] INP/OBS CARE(HIGH) TANMAY PIRES RESIDENT Mar 03, 2024 14:36 MITZI DONATO MD Mar 03, 2024 21:57
[2024-03-03] MEDS: cefTRIAXone 1GM/50ML D5W 50 ML IV ONE (17:58)
--- NOTE | 2024-03-03 18:43 | DVHINCON2 ---
Date of service: Mar 03, [address] Calvert Reason for Consultation Abdominal cramping diarrhea and rectal bleeding History of Present Illness Haleigh Sneed is a 68-year-old female with past medical history of hypertension, hyperlipidemia, diabetes, diverticulitis, morbid obesity, and CVA with no deficits who presents to the ED with abdominal cramping and diarrhea x2 days. Patient reports that she had blood in her stool 3 times today and several yesterday. She states that she was at the social insurance specialist's office and felt some cramping then went to the bathroom had a bowel movement and noticed some mucus and blood in her stool states that it was noticeable and streak like. Today the patient is feeling better. Her abdominal pain has improved and she actually has not had a bowel movement today. She stated she had a colonoscopy about two years ago which was negative and she was advised to repeat colonoscopy in five years. 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 SHINGLE ROOFER: CVA (No deficits) Endocrine: Diabetes Past Medical History Morbid obesity and diverticulitis Past Surgical History Past Surgical History: Cholecystectomy, Tubal Ligation Family History: Cancer of colon G8 MOTHER Family history: Diabetes mellitus G8 MOTHER Allergies: Coded Allergies: Codeine (Verified Adverse Reaction, Severe, VOMITTING AND DROWSY, 03/03/24) Home Meds Active Scripts Metoclopramide Hcl (Reglan) 10 Mg Tab, 10 MG PO TID PRN for 10 Days, #30 TAB Prov:THAIS NICHOLAS MD 11/28/21 Metoprolol Succinate (Toprol Xl) 50 Mg Tab, 1 TAB PO DAILY, #30 TAB 0 Refills Prov:NITHIN CHAHAL MD 12/16/14 Aspirin (Asa) 81 Mg Ch, 81 MG PO DAILY, #30 Prov:NITHIN CHAHAL MD 12/16/14 Atorvastatin Calcium (ATORVASTATIN CALCIUM) 20 Mg Tb, 20 MG PO HS, #30 TAB Prov:NITHIN CHAHAL MD 12/16/14 Reported Medications Insulin Glargine (Lantus) 100 Units/Ml Vial, 50 MG SC DAILY, INJ 04/19/16 Enalapril Maleate (Enalapril Maleate) 10 Mg Tab, DAILY 01/04/12 Gabapentin (Gabapentin) 100 Mg Cap, DAILY 01/04/12 Current Medications Current Medications Medications (Trade) Dose Ordered Sig/Lynnette Route PRN Reason Start Time Stop Time Status Last Admin Enalapril Maleate (Vasotec Tablet) 10 mg DAILY PO 03/03/24 10:00 03/03/24 09:11 Metronidazole 100 ml @ 100 mls/hr Q8H IV 03/03/24 02:00 03/03/24 18:23 Pantoprazole Sodium (Protonix) 40 mg DAILY IV 03/03/24 10:00 03/03/24 09:11 Diagnostic Test (Pha) (Accu-Chek Comfort Curve T) 1 strip IQ4HR 03/03/24 00:00 03/03/24 16:00 Insulin Human Regular (InsuLIN R) IQ4HR SC 03/03/24 00:00 03/03/24 00:10 Dextrose 50 ml UD PRN IV Blood Sugar LESS THAN 60 03/02/24 22:30 Ceftriaxone Sodium 50 ml @ 100 mls/hr DAILY@09 IV 03/04/24 09:00 Vital Signs Vital Signs Date Time Temp Pulse Resp B/P (MAP) Pulse Ox O2 Delivery O2 Flow Rate FiO2 03/03/24 17:00 98.1 78 16 144/75 (98) 96 98.1 03/03/24 08:00 Room Air* 0 21 Physical Exam General Appearance: Alert, Oriented X3, Cooperative, No acute distress HEENT: Atraumatic, PERRLA, EOMI, Mucous membr. moist/pink Respiratory: Clear to auscultation, Normal air movement Cardiovascular: Regular rate, Normal S1, Normal S2, No murmurs Abdominal: Soft, No hepatospenomegaly, No masses Extremities: No clubbing, No cyanosis, No edema, Normal pulses, No tenderness/swelling Skin: No rashes, No breakdown, No significant lesion Neuro: Normal gait, Normal speech, Strength at 5/5 X4 ext, Normal tone, Sensation intact Psych/Mental Status: Mental status NL, Mood NL Labs/Diagnostic Data Labs Test 03/03/24 16:36 03/03/24 10:00 03/03/24 07:09 03/02/24 14:30 Range/Units POC Glucose 71 70-106 mg/dl Stool Occult Blood Negative Negative Stool Occult Blood Sample #3 Negative Stool for White Cells Rare White Blood Count 8.7 # 4.4-10.8 10^3/uL Red Blood Count 3.50 L 4.0-5.20 10^6/uL Hemoglobin 10.1 #L 12.2-16.2 g/dL Hematocrit 30.8 #L 36.0-46.0 % Mean Corpuscular Volume 87.9 80.0-100.0 fL Mean Corpuscular Hemoglobin 28.9 28.0-32.0 pg Mean Corpuscular Hemoglobin Concent 32.9 32.0-36.0 g/dL Red Cell Distribution Width 14.6 H 11.8-14.3 % Platelet Count 273 140-450 10^3/uL Mean Platelet Volume 8.3 6.9-10.8 fL Neutrophils (%) (Auto) 68.7 37.0-80.0 % Lymphocytes (%) (Auto) 22.3 10.0-50.0 % Monocytes (%) (Auto) 6.7 0.0-12.0 % Eosinophils (%) (Auto) 1.9 0.0-7.0 % Basophils (%) (Auto) 0.4 0.0-2.0 % Neutrophils # (Auto) 6.0 1.6-8.6 10 ^3/uL Lymphocytes # (Auto) 1.9 0.4-5.4 10 ^3/uL Monocytes # (Auto) 0.6 0-1.3 10 ^3/uL Eosinophils # (Auto) 0.2 0-0.8 10 ^3/uL Basophils # (Auto) 0 0-0.2 10 ^3/uL Nucleated Red Blood Cells 0.1 % Sodium Level 142 136-145 mmol/L Potassium Level 4.5 3.5-5.1 mmol/L Chloride Level 113 H 98-107 mmol/L Carbon Dioxide Level 23 20-31 mmol/L Anion Gap 6 5-15 Blood Urea Nitrogen 22 9-23 mg/dL Creatinine 2.18 H 0.550-1.02 mg/dL Glomerular Filtration Rate Calc 24 >90 mL/min BUN/Creatinine Ratio 10.1 10.0-20.0 Serum Glucose 77 74-106 mg/dL Lactic Acid Level 0.7 0.4-2.0 mmol/L Calcium Level 9.2 8.7-10.4 mg/dL Total Bilirubin 0.4 0.2-1.0 mg/dL Aspartate Amino Transferase (AST) 12 L 13-40 U/L Alanine Aminotransferase (ALT) < 9 7-40 U/L Alkaline Phosphatase 87 46-116 U/L Total Protein 5.9 5.7-8.2 g/dL Albumin 3.6 3.2-4.8 g/dL Lipase 28 12-53 U/L Test 03/02/24 13:41 03/02/24 11:45 Range/Units Urine Color Light-orange Yellow Urine Clarity Ex.turbid Clear Urine pH 5.5 5.0-9.0 Urine Specific [place] 1.014 1.001-1.035 Urine Protein 1+ H Negative Urine Ketones Negative Negative Urine Blood 3+ H Negative /uL Urine Nitrite Negative Negative Urine Bilirubin Negative Negative Urine Urobilinogen Normal Negative mg/dL Urine Leukocyte Esterase 3+ Negative /uL Urine RBC 564 0 - 4 /hpf Urine WBC 495 0 - 5 /hpf Urine Squamous Epithelial Cells Mod <5 /hpf Urine Bacteria Few H None Seen /hpf Urine Mucus Few None Seen Urine Glucose Normal Normal mg/dL Prothrombin Time 10.9 9.3-11.8 sec Prothrombin Time INR 1.03 0.9-1.15 Activated Partial Thromboplast Time 30.2 24.5-34.5 SEC Troponin I High Sensitivity 6 </=34 ng/L CT SCAN ABD PELVIS IMPRESSION: 1. There is no acute process in the abdomen and pelvis. 2. 1.3 cm hypodense right adrenal gland adenoma. 3. Cholecystectomy. Problems(with codes): (1) Rectal bleeding (2) Nausea vomiting and diarrhea (3) Acute abdominal pain (4) Acute renal insufficiency (5) Elevated lactic acid level (6) Urinary tract infection Plan/Recommendation Assessment plan I had ordered some stool tests for her Her stool for occult blood is negative and her stool for WBC shows rare WBC Stool bacterial culture and C diff are pending Patient will need a urine culture as her UA was abnormal and positive and she has elevated creatinine and lactic acidosis Continue IV antibiotics; IV fluid hydration Supportive care and advance diet as tolerated Patient was advised outpatient follow up with me to discuss repeat elective colonoscopy after reviewing her last records At this time I think we need to focus on treating her UTI possible urosepsis and renal insufficiency Plan discussed with: Patient, Other (Nurse) WILLIE MANCILLA MD Mar 03, 2024 18:43
[2024-03-04] VITALS (7 sets, daily range): BP systolic 130–159; BP diastolic 43–68; PULSE 67–78; RESP 16–18; TEMP 98–98.9; O2SAT 96–99
[2024-03-04 07:28] LABS: Basophils # (auto) 0 10 ^3/uL (0-0.2); Basophils % (auto) 0.5 % (0.0-2.0); Eosinophils # (auto) 0.2 10 ^3/uL (0-0.8); Eosinophils % (auto) 2.9 % (0.0-7.0); Hematocrit 29.8 % (36.0-46.0); Hemoglobin 9.7 g/dL (12.2-16.2); Lymphocytes # (auto) 2.2 10 ^3/uL (0.4-5.4); Lymphocytes % (auto) 32.9 % (10.0-50.0); Mean Corpuscular Hemoglobin 28.5 pg (28.0-32.0); Mean Corpuscular Hgb Conc. 32.4 g/dL (32.0-36.0); Monocytes # (auto) 0.4 10 ^3/uL (0-1.3); Monocytes % (auto) 6.5 % (0.0-12.0); Neutrophils # (auto) 3.9 10 ^3/uL (1.6-8.6); Neutrophils % (auto) 57.2 % (37.0-80.0); Nucleated Red Blood Cells % 0.1 %; Platelet Count (auto) 276 10^3/uL (140-450); Red Blood Cells 3.39 10^6/uL (4.0-5.20); Red Cell Distribution Width 14.7 % (11.8-14.3); White Blood Cell 6.7 10^3/uL (4.4-10.8)
[2024-03-04 07:35] LABS: Anion Gap 5 (5-15); Carbon Dioxide 23 mmol/L (20-31); Potassium 4.8 mmol/L (3.5-5.1); Sodium 140 mmol/L (136-145)
[2024-03-04 07:36] LABS: Calcium 9.3 mg/dL (8.7-10.4)
--- NOTE | 2024-03-04 07:39 | ECG ---
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
[2024-03-04 07:41] LABS: BUN/Creatinine Ratio 9.6 (10.0-20.0); Blood Urea Nitrogen 17 mg/dL (9-23); Glucose 77 mg/dL (74-106); Magnesium 1.8 mg/dL (1.6-2.6)
[2024-03-04 07:50] LABS: Chloride 112 mmol/L (98-107)
[2024-03-04] MEDS: cefTRIAXone 1GM/50ML D5W 50 ML IV SCH (09:46)
[2024-03-04] MEDS ORDERED: SODIUM CHLORIDE 0.9% 500 ML IV ONE (11:00)
--- NOTE | 2024-03-04 11:52 | DVHPNRES ---
Progress Note Date Seen: Mar 04, 2024 Resident Creating Document: PRISCILLA RIDDLE RESIDENT Medical Necessity Reason Pt with a Central, PICC or Fol: No Subjective Review of Systems 68-year-old female with past medical history of diabetes mellitus type 2, hypertension, hyperlipidemia, diverticular disease, stroke presented with complaints of lower abdominal pain with associated with cramping and diarrhea for last two days. Patient also mentioned blood when she was wiping after passing stools. Patient denied any nausea, vomiting, chest pain Patient seen and examined at bedside. Patient notes she had 4 bowel movements in the last 24 hours, she notes last bowel movement was light pink in color, however, stool FOBT is negative. We will order a repeat stool FOBT today. Patient also had an episode of hypoglycemia at 4:00 a.m. were blood glucose was noted to be 77, patient states she has decreased appetite due to fear of diarrhea, we stopped mild sliding scale insulin. Currently awaiting stool culture and C diff tests. Objective vital signs Vital Sign Date Time Temp Pulse Resp B/P (MAP) Pulse Ox O2 Delivery O2 Flow Rate FiO2 03/04/24 09:46 130/61 03/04/24 08:51 98.3 67 16 96 98.3 03/03/24 20:00 Room Air* 0 21 Total Intake and Output 03/03/24 03/03/24 03/04/24 15:00 23:00 07:00 Intake Total 510 ml 900 ml Balance 510 ml 900 ml medications Current Medications Medications Dose Ordered Sig/Lynnette Route Start Time Stop Time Status Last Admin Dose Admin Enalapril Maleate 10 mg DAILY PO 03/03/24 10:00 03/04/24 09:46 10 MG Ondansetron HCl 4 mg Q4HP PRN IV 03/02/24 17:30 Acetaminophen 650 mg Q6HP PRN PO 03/02/24 17:30 Metronidazole 100 ml @ 100 mls/hr Q8H IV 03/03/24 02:00 03/04/24 09:46 100 MLS/HR Pantoprazole Sodium 40 mg DAILY IV 03/03/24 10:00 03/04/24 09:46 40 MG Ceftriaxone Sodium 50 ml @ 100 mls/hr DAILY@09 IV 03/04/24 09:00 03/04/24 09:46 100 MLS/HR Examination General Appearance: Alert, Oriented X3, Cooperative, No acute distress. Sunken eyes, decreased skin turgor HEENT: EOMI Respiratory: Clear to auscultation, Normal air movement Cardiovascular: Regular rate, Normal S1, Normal S2 Abdominal: Lower abdominal mild tenderness, Normal bowel sounds Extremities: No cyanosis, No edema, Normal pulses, No tenderness/swelling Skin: No rashes, No breakdown Neuro: Normal speech and tone laboratory and microbiology Laboratory Tests 03/04/24 06:59 Test 03/04/24 06:59 Range/Units Serum Glucose 77 74-106 mg/dL Microbiology Date/Time Source Procedure Growth Status 03/03/24 10:00 Stool Stool Culture - Preliminary Resulted 03/03/24 10:00 Stool Shiga Toxin I & II Pending Resulted Labs and/or images reviewed: Labs reviewed by me, Image(s) reviewed by me Problem List/Assessment/Plan Problem List/Assessment/Plan #intractable diarrhea -clear liquid diet -rare stool WBCs, negative stool occult blood: Awaiting stool culture and C diff - IV ceftriaxone plus IV metronidazole - 250 cc bolus x2 on 03/04/23 #hematochezia, history of diverticular disease -IV Protonix - hemoglobin 12 --> 10.1 --> 9.7 -CT abd/pelvis: No acute process in the abdomen and pelvis. 1.3 hypodense right adrenal gland adenoma. S/p cholecystectomy. -GI on board Acute complicated UTI - ordered urine culture - IV ceftriaxone SHIVA likely hemodynamically mediated/VMN on questionable CKD? - IV fluids - we will continue to monitor #DM2, stable Hb A1c 5.8 - discontinue sliding scale insulin - we will continue to monitor #HTN - enalapril 10 mg p.o. daily #HLD -. Resume home medication on discharge #history of stroke -patient stopped taking aspirin long time ago, currently on hold because of GI bleed # 1.3 cm hypodense right adrenal gland adenoma. -outpatient follow up PUD prophylaxis: protonix 40mg Goals of care: Full code, discussed for >16 minutes on 03/04/24 Plan discussed with patient Plan discussed with Dr Donato Plan discussed with: Patient, Other (RN) My Orders My Orders Orders - PRISCILLA RIDDLE Procedure Category Date Status Time Sodium Chloride 0.9% PHA 03/04/24 In Process 11:00 NS PHA 03/04/24 Verified 11:45 Date of Service: Mar 04, 2024 Billing Provider: MITZI DONATO MD Common Visit Codes: [id number] INP/OBS CARE(HIGH) RIDDLEPRISCILLA RESIDENT Mar 04, 2024 11:52 MITZI DONATO MD Mar 04, 2024 21:43
[2024-03-04] MEDS: SODIUM CHLORIDE 0.9% 1,000 ML IV ONE (12:12)
[2024-03-04] MEDS ORDERED: SODIUM CHLORIDE 0.9% 250 ML IV ONE (17:30)
[2024-03-04] MEDS: SODIUM CHLORIDE 0.9% 250 ML IV ONE (18:07)
--- NOTE | 2024-03-04 21:57 | DVHPN2 ---
Progress Note - Dictate Date Seen: Mar 04, 2024 (Late entryPatient seen at 9:00 a.m.) Medical Necessity Reason Pt with a Central, PICC or Fol: No Subjective Patient was complaining of some dizziness and wanted her blood sugar check She denied any nausea vomiting or diarrhea today; two bowel movements recorded Stool culture came back positive for Campylobacter antigen Urine culture is pending vital signs Vital Sign Date Time Temp Pulse Resp B/P (MAP) Pulse Ox O2 Delivery O2 Flow Rate FiO2 03/04/24 16:45 98.6 68 17 159/68 (98) 98 98.6 03/04/24 08:00 Room Air* 0 21 Total Intake and Output 03/03/24 03/03/24 03/04/24 15:00 23:00 07:00 Intake Total 510 ml 900 ml Balance 510 ml 900 ml medications Current Medications Medications Dose Ordered Sig/Lynnette Route Start Time Stop Time Status Last Admin Dose Admin Enalapril Maleate 10 mg DAILY PO 03/03/24 10:00 03/04/24 09:46 10 MG Ondansetron HCl 4 mg Q4HP PRN IV 03/02/24 17:30 Acetaminophen 650 mg Q6HP PRN PO 03/02/24 17:30 Metronidazole 100 ml @ 100 mls/hr Q8H IV 03/03/24 02:00 03/04/24 18:07 100 MLS/HR Pantoprazole Sodium 40 mg DAILY IV 03/03/24 10:00 03/04/24 09:46 40 MG Ceftriaxone Sodium 50 ml @ 100 mls/hr DAILY@09 IV 03/04/24 09:00 03/04/24 09:46 100 MLS/HR objective General Appearance: Alert, Oriented X3, Cooperative, Mild distress and anxiety HEENT: Atraumatic, PERRLA, EOMI, Mucous membr. moist/pink Respiratory: Clear to auscultation, Normal air movement Cardiovascular: Regular rate, Normal S1, Normal S2, No murmurs Abdominal: Soft, No hepatospenomegaly, No masses Extremities: No clubbing, No cyanosis, No edema, Normal pulses, No tenderness/swelling Skin: No rashes, No breakdown, No significant lesion Neuro: Normal gait, Normal speech, Strength at 5/5 X4 ext, Normal tone, Sensation intact Psych/Mental Status: Mental status NL, Mood NL laboratory and microbiology Laboratory Tests 03/04/24 06:59 Test 03/04/24 06:59 Range/Units Serum Glucose 77 74-106 mg/dL Problems(with codes): (1) Urinary tract infection (2) Rectal bleeding (3) Nausea vomiting and diarrhea (4) Elevated lactic acid level (5) Acute renal insufficiency (6) Acute abdominal pain (7) Gastroenteritis (8) Campylobacter diarrhea Prognosis PLAN Her stool for occult blood is negative and her stool for WBC shows rare WBC Stool bacterial culture was positive for Campylobacter antigen and C diff are pending Patient is already on ceftriaxone and IV Flagyl, I will add IV Levaquin Patient will need a urine culture as her UA was abnormal and positive and she has elevated creatinine and lactic acidosis Continue IV antibiotics; IV fluid hydration Supportive care and advance diet as tolerated Patient was advised outpatient follow up with me to discuss repeat elective colonoscopy after reviewing her last records Plan discussed with: Patient WILLIE MANCILLA MD Mar 04, 2024 21:56
[2024-03-04] MEDS: levoFLOXacin 250MG 50 ML IV SCH (23:34)
[2024-03-05] VITALS (8 sets, daily range): BP systolic 131–184; BP diastolic 34–74; PULSE 67–78; RESP 15–18; TEMP 97.5–98; O2SAT 95–97
[2024-03-05] MEDS: ACETAMINOPHEN 325 MG TAB PO PRN (01:33)
[2024-03-05 06:18] LABS: Potassium 4.8 mmol/L (3.5-5.1); Sodium 141 mmol/L (136-145)
[2024-03-05 06:19] LABS: Anion Gap 8 (5-15); Carbon Dioxide 22 mmol/L (20-31)
[2024-03-05 06:24] LABS: BUN/Creatinine Ratio 9.2 (10.0-20.0); Blood Urea Nitrogen 13 mg/dL (9-23); Glucose 89 mg/dL (74-106)
[2024-03-05 06:25] LABS: Chloride 111 mmol/L (98-107)
[2024-03-05 07:34] LABS: Basophils # (auto) 0 10 ^3/uL (0-0.2); Basophils % (auto) 0.3 % (0.0-2.0); Eosinophils # (auto) 0.2 10 ^3/uL (0-0.8); Eosinophils % (auto) 3.6 % (0.0-7.0); Hemoglobin 9.6 g/dL (12.2-16.2); Lymphocytes # (auto) 2.3 10 ^3/uL (0.4-5.4); Mean Corpuscular Hemoglobin 28.4 pg (28.0-32.0); Mean Corpuscular Hgb Conc. 32.2 g/dL (32.0-36.0); Mean Corpuscular Volume 88.4 fL (80.0-100.0); Monocytes # (auto) 0.5 10 ^3/uL (0-1.3); Monocytes % (auto) 7.3 % (0.0-12.0); Neutrophils # (auto) 3.8 10 ^3/uL (1.6-8.6); Neutrophils % (auto) 55.8 % (37.0-80.0); Nucleated Red Blood Cells % 0.3 %; Platelet Count (auto) 272 10^3/uL (140-450); Red Blood Cells 3.39 10^6/uL (4.0-5.20); Red Cell Distribution Width 14.5 % (11.8-14.3); White Blood Cell 6.8 10^3/uL (4.4-10.8)
[2024-03-05] MEDS: FLORASTOR (S. BOULARDII) 250 MG CAP PO SCH (08:53)
--- NOTE | 2024-03-05 12:55 | DVHDSRES ---
Discharge Summary Date of Admission Resident Creating Document: TANMAY PIRES Mar 02, 2024 at 17:27 Date of Discharge: Mar 05, 2024 Labs/Diagnostic Data: Laboratory Results Test 03/05/24 04:49 03/04/24 11:26 03/04/24 06:59 03/03/24 10:00 White Blood Count 6.8 10^3/uL (4.4-10.8) Red Blood Count 3.39 10^6/uL (4.0-5.20) Hemoglobin 9.6 g/dL (12.2-16.2) Hematocrit 30.0 % (36.0-46.0) Mean Corpuscular Volume 88.4 fL (80.0-100.0) Mean Corpuscular Hemoglobin 28.4 pg (28.0-32.0) Mean Corpuscular Hemoglobin Concent 32.2 g/dL (32.0-36.0) Red Cell Distribution Width 14.5 % (11.8-14.3) Platelet Count 272 10^3/uL (140-450) Mean Platelet Volume 9.0 fL (6.9-10.8) Neutrophils (%) (Auto) 55.8 % (37.0-80.0) Lymphocytes (%) (Auto) 33.0 % (10.0-50.0) Monocytes (%) (Auto) 7.3 % (0.0-12.0) Eosinophils (%) (Auto) 3.6 % (0.0-7.0) Basophils (%) (Auto) 0.3 % (0.0-2.0) Neutrophils # (Auto) 3.8 10 ^3/uL (1.6-8.6) Lymphocytes # (Auto) 2.3 10 ^3/uL (0.4-5.4) Monocytes # (Auto) 0.5 10 ^3/uL (0-1.3) Eosinophils # (Auto) 0.2 10 ^3/uL (0-0.8) Basophils # (Auto) 0 10 ^3/uL (0-0.2) Nucleated Red Blood Cells 0.3 % Sodium Level 141 mmol/L (136-145) Potassium Level 4.8 mmol/L (3.5-5.1) Chloride Level 111 mmol/L (98-107) Carbon Dioxide Level 22 mmol/L (20-31) Anion Gap 8 (5-15) Blood Urea Nitrogen 13 mg/dL (9-23) Creatinine 1.41 mg/dL (0.550-1.02) Glomerular Filtration Rate Calc 41 mL/min (>90) BUN/Creatinine Ratio 9.2 (10.0-20.0) Serum Glucose 89 mg/dL (74-106) Calcium Level 9.0 mg/dL (8.7-10.4) POC Glucose 119 mg/dl (70-106) Hemoglobin A1c 5.8 % A1C (<5.7) Magnesium Level 1.8 mg/dL (1.6-2.6) Stool Occult Blood Negative (Negative) Stool Occult Blood Sample #3 (Negative) Stool for White Cells Rare Test 03/03/24 07:09 03/02/24 14:30 03/02/24 13:41 03/02/24 11:45 Lactic Acid Level 0.7 mmol/L (0.4-2.0) Total Bilirubin 0.4 mg/dL (0.2-1.0) Aspartate Amino Transferase (AST) 12 U/L (13-40) Alanine Aminotransferase (ALT) < 9 U/L (7-40) Alkaline Phosphatase 87 U/L (46-116) Total Protein 5.9 g/dL (5.7-8.2) Albumin 3.6 g/dL (3.2-4.8) Lipase 28 U/L (12-53) Urine Color Light-orange (Yellow) Urine Clarity Ex.turbid (Clear) Urine pH 5.5 (5.0-9.0) Urine Specific [place] 1.014 (1.001-1.035) Urine Protein 1+ (Negative) Urine Ketones Negative (Negative) Urine Blood 3+ /uL (Negative) Urine Nitrite Negative (Negative) Urine Bilirubin Negative (Negative) Urine Urobilinogen Normal mg/dL (Negative) Urine Leukocyte Esterase 3+ /uL (Negative) Urine RBC 564 /hpf (0 - 4) Urine WBC 495 /hpf (0 - 5) Urine Squamous Epithelial Cells Mod /hpf (<5) Urine Bacteria Few /hpf (None Seen) Urine Mucus Few (None Seen) Urine Glucose Normal mg/dL (Normal) Prothrombin Time 10.9 sec (9.3-11.8) Prothrombin Time INR 1.03 (0.9-1.15) Activated Partial Thromboplast Time 30.2 SEC (24.5-34.5) Troponin I High Sensitivity 6 ng/L (</=34) Other Laboratory Tests 03/05/24 04:49 Brief Hx & Hospital Course: 68-year-old female with past medical history of diabetes mellitus type 2, hypertension, hyperlipidemia, diverticular disease, stroke presented with complaints of lower abdominal pain associated with cramping and diarrhea for last two days. Patient also mentioned about having rectal bleeding whenever she was wiping after passing stools.. Patient was started on IV Protonix, IV ceftriaxone and metronidazole. Stool cultures, C diff stool, stool WBC was ordered. CT abdomen/pelvis showed CT abd/pelvis No acute process in the abdomen and pelvis. 1.3 hypodense right adrenal gland adenoma. Patient's urine routine showed evidence of UTI. GI was consulted. Patient was stool culture came out positive for Campylobacter. Patient was started on levofloxacin. Patient mentioned improvement in her symptoms. IV ceftriaxone and metronidazole was discontinued. At the time of discharge, patient is stable vitals, no new complaints. Discharge plan discussed with the patient and patient was advised to follow up with PCP within one week and GI within 2-3 weeks. Patient was prescribed levofloxacin 750 mg daily for three days and Florastor. Consults/Reason for consult GI consult Condition at Discharge: Stable Final Diagnosis/Problems List Intractable bloody diarrhea due to Campylobacter infection Hematochezia, history of diverticular disease Urinary tract infection SHIVA likely hemodynamically mediated/VMN questionable CKD Diabetes mellitus type 2 Hypertension Hyperlipidemia History of stroke 1.3 cm right adrenal adenoma Discharge Disposition: Home Discharge Instruct/Medications Follow Up/Referral: Follow up with PCP/DC clinic within one week and GI within 2-3 weeks Medications: Levofloxacin, Florastor Discharge Statement: "Patient was advised to return to the ER or call 911 if any headaches, dizziness, shortness of breath, chest pain, abdominal pain, bleeding, fevers, or worsening of medical condition. Patient was counseled about treatment plan, medications, possible side effects, patientverbalized understanding. All questions were answered to the best of my ability. This discharge took greater then 30 minutes in planning, reviewing documentation, counseling the patient, and discussing with other team members." ASSESSMENT ASSESSMENT Assessment Date of Service: Mar 05, 2024 Billing Provider: JOSEE VALDERRAMA MD Common Visit Codes: [id number] INP/OBS CARE(HIGH) TANMAY PIRES RESIDENT Mar 05, 2024 12:55 JOSEE VALDERRAMA MD Mar 06, 2024 13:02
[2024-03-05] MEDS ORDERED: SACC250C PO (12:57)
[2024-03-05] MEDS ORDERED: LEVO750T40 PO (12:57)
[2024-03-05] MEDS ORDERED: METOCLOPRAMIDE HCL 5MG/ml INJ 2ml VIAL IV ONE (16:00)
[2024-03-05] MEDS: METOCLOPRAMIDE HCL 5MG/ml INJ 2ml VIAL IV SCH (16:33)
[2024-03-05] MEDS: hydrALAZINE HCL 20 MG/ML VL IV PRN (18:14)
--- NOTE | 2024-03-05 19:48 | ECG ---
[facility] Test Date: 2024-03-05 Test Time: 19:46:36 Pat Name: TONYA LOWRY Department: Respiratoy Room: 0223 A Gender: F [employer] Weaver: [id number] : 1955 Requested By: TANMAY PIRES Order Number: [id number] Reading MD: Arley Simms Measurements Intervals [place] Rate: 71 P: 16 OH: 231 QRS: -46 QRSD: 105 T: 38 QT: 400 QTc: 435 Interpretive Statements Sinus rhythm Prolonged OH interval Left anterior fascicular block Abnormal R-wave progression, late transition Electronically Signed On 03-06-2024 13:32:46 PST by Arley Simms Please click the below link to view image of tracing.
[2024-03-06 01:00] VITALS: BP 114/39; PULSE 67; RESP 15; TEMP 98; O2SAT 94
[2024-03-06 05:00] VITALS: BP 135/60; PULSE 70; RESP 16; TEMP 97.6; O2SAT 95
[2024-03-06] MEDS: PANTOPRAZOLE 40 MG TAB PO SCH (05:58)
[2024-03-06] MEDS ORDERED: PANTOPRAZOLE 40 MG TAB PO SCH (06:00)
[2024-03-06 07:22] LABS: Basophils # (auto) 0 10 ^3/uL (0-0.2); Basophils % (auto) 0.5 % (0.0-2.0); Eosinophils # (auto) 0.2 10 ^3/uL (0-0.8); Eosinophils % (auto) 3.6 % (0.0-7.0); Hematocrit 30.7 % (36.0-46.0); Hemoglobin 10.1 g/dL (12.2-16.2); Lymphocytes # (auto) 1.9 10 ^3/uL (0.4-5.4); Lymphocytes % (auto) 29.9 % (10.0-50.0); Mean Corpuscular Hemoglobin 28.7 pg (28.0-32.0); Mean Corpuscular Hgb Conc. 32.9 g/dL (32.0-36.0); Mean Corpuscular Volume 87.4 fL (80.0-100.0); Monocytes # (auto) 0.6 10 ^3/uL (0-1.3); Monocytes % (auto) 8.8 % (0.0-12.0); Neutrophils # (auto) 3.6 10 ^3/uL (1.6-8.6); Neutrophils % (auto) 57.2 % (37.0-80.0); Platelet Count (auto) 269 10^3/uL (140-450); Red Blood Cells 3.51 10^6/uL (4.0-5.20); Red Cell Distribution Width 14.8 % (11.8-14.3); White Blood Cell 6.4 10^3/uL (4.4-10.8)
[2024-03-06 07:27] LABS: Potassium 4.8 mmol/L (3.5-5.1); Sodium 139 mmol/L (136-145)
[2024-03-06 07:28] LABS: Anion Gap 6 (5-15); Carbon Dioxide 23 mmol/L (20-31)
[2024-03-06 07:29] LABS: Calcium 9.5 mg/dL (8.7-10.4)
[2024-03-06 07:33] LABS: BUN/Creatinine Ratio 7.3 (10.0-20.0); Blood Urea Nitrogen 11 mg/dL (9-23)
[2024-03-06 07:36] LABS: Chloride 110 mmol/L (98-107); Glucose 113 mg/dL (74-106); Magnesium 1.5 mg/dL (1.6-2.6)
[2024-03-06 08:00] VITALS: PULSE 73; RESP 17; O2SAT 95
[2024-03-06 08:38] VITALS: BP 157/49; PULSE 73; RESP 17; TEMP 97.9; O2SAT 95
[2024-03-06] MEDS ORDERED: SACC250C PO (08:58)
[2024-03-06] MEDS: MAGNESIUM SULFATE 1GM/100ML 100 ML IV SCH (09:58)
[2024-03-06] MEDS ORDERED: MAGNESIUM SULFATE 1GM/100ML 100 ML IV ONE (12:17)
--- NOTE | 2024-03-06 12:46 | DVHPNRES ---
Progress Note Date Seen: Mar 06, 2024 Resident Creating Document: TANMAY PIRES RESIDENT Medical Necessity Reason Pt with a Central, PICC or Fol: No Subjective Review of Systems pt seen and examined at bedside. She is mentioning of improvement of symptoms. She is able to tolerate diet today. Pt was planned to be discharged yesterday but could not tolerate diet and discharge was held. Objective vital signs Vital Sign Date Time Temp Pulse Resp B/P (MAP) Pulse Ox O2 Delivery O2 Flow Rate FiO2 03/06/24 09:59 157/49 03/06/24 08:38 97.9 73 17 95 97.9 03/06/24 08:00 Room Air* 0 21 Total Intake and Output 03/05/24 03/05/24 03/06/24 15:00 23:00 07:00 Intake Total 1000 ml 240 ml Output Total 700 ml Balance 1000 ml -460 ml medications Current Medications Medications Dose Ordered Sig/Lynnette Route Start Time Stop Time Status Last Admin Dose Admin Enalapril Maleate 10 mg DAILY PO 03/03/24 10:00 03/06/24 09:59 10 MG Ondansetron HCl 4 mg Q4HP PRN IV 03/02/24 17:30 Acetaminophen 650 mg Q6HP PRN PO 03/02/24 17:30 03/05/24 20:06 650 MG Levofloxacin 50 ml @ 50 mls/hr DAILY@2200 IV 03/04/24 23:00 03/05/24 22:14 50 MLS/HR Saccharomyces Boulardii 250 mg DAILY PO 03/05/24 10:00 03/06/24 09:59 250 MG Pantoprazole Sodium 40 mg DAILY@0600 PO 03/06/24 06:00 03/06/24 05:58 40 MG Metoclopramide HCl 5 mg Q8H IV 03/05/24 16:15 03/06/24 09:59 5 MG Hydralazine HCl 10 mg Q6HP PRN IV 03/05/24 18:15 03/05/24 18:14 10 MG Examination Examination General Appearance: Alert, Oriented X3, Cooperative, No acute distress HEENT: EOMI Respiratory: Clear to auscultation, Normal air movement Cardiovascular: Regular rate, Normal S1, Normal S2 Abdominal: Lower abdominal mild tenderness, Normal bowel sounds Extremities: No cyanosis, No edema, Normal pulses, No tenderness/swelling Skin: No rashes, No breakdown Neuro: Normal speech and tone laboratory and microbiology Laboratory Tests 03/06/24 06:44 Test 03/06/24 06:44 Range/Units Serum Glucose 113 H 74-106 mg/dL Microbiology Date/Time Source Procedure Growth Status 03/03/24 23:00 Urine - Midstream Clean Catch Urine Culture - Preliminary Resulted 03/03/24 10:00 Stool Stool Culture - Final Complete 03/03/24 10:00 Stool Shiga Toxin I & II - Final Complete Problem List/Assessment/Plan Problem List/Assessment/Plan Assessment/Plan #Intractable bloody diarrhea due to Campylobacter infection -IV fluids -clear liquid diet -stool studies -Iv ceftriaxone plus IV metronidazole -c.difficile #hematochezia, history of diverticular disease -IV Protonix -CT abd/pelvis -GI on board #DM2 -sliding scale insulin #Urinary tract infection -Levofloxacin #SHIVA likely hemodynamically mediated/VMN questionable CKD -improving #HTN -continue home medication #HLD -. Resume home medication on discharge #history of stroke -patient stopped taking aspirin long time ago, currently on hold because of GI bleed # 1.3 cm hypodense right adrenal gland adenoma. -outpatient follow up Code status discussed with the patient for >21 min, FULL CODE Case discussion with Dr VALDERRAMA Pt was planned to be discharged yesterday but could not tolerate diet and discharge was held. Plan discussed with: Patient, Other My Orders My Orders Orders - TANMAY PIRES Procedure Category Date Status Time Advance Diet As OCHOA 03/05/24 In Process Tolerated 12:54 Schedule For Dc OCHOA 03/05/24 In Process Clinic F/U 14:18 Metoclopramide PHA 03/05/24 In Process Injection (Reglan 16:15 Discharge DISCHARGE 03/06/24 Transmitted 08:58 Mechanical Soft Diet DIET 03/06/24 Transmitted Lunch Date of Service: Mar 06, 2024 Billing Provider: JOSEE VALDERRAMA MD Common Visit Codes: 96096-JMT/OBS DISCH DAY >30min TANMAY PIRES Mar 06, 2024 12:46 JOSEE VALDERRAMA MD Mar 06, 2024 13:03
[2024-03-06 13:00] VITALS: BP 139/56; PULSE 73; RESP 17; TEMP 98.2; O2SAT 95
--- NOTE | 2024-03-06 14:24 | DVHPN2 ---
Progress Note - Dictate Date Seen: Mar 06, 2024 Medical Necessity Reason Pt with a Central, PICC or Fol: No Subjective Patient is feeling much better today She denied any nausea vomiting or diarrhea today; one bowel movements recorded Stool culture came back positive for Campylobacter antigen Urine culture showed less than 12654 count of Enterococcus faecalis vital signs Vital Sign Date Time Temp Pulse Resp B/P (MAP) Pulse Ox O2 Delivery O2 Flow Rate FiO2 03/06/24 13:00 98.2 73 17 139/56 (83) 95 98.2 03/06/24 08:00 Room Air* 0 21 Total Intake and Output 03/05/24 03/05/24 03/06/24 15:00 23:00 07:00 Intake Total 1000 ml 240 ml Output Total 700 ml Balance 1000 ml -460 ml medications Current Medications Medications Dose Ordered Sig/Lynnette Route Start Time Stop Time Status Last Admin Dose Admin Enalapril Maleate 10 mg DAILY PO 03/03/24 10:00 03/06/24 09:59 10 MG Ondansetron HCl 4 mg Q4HP PRN IV 03/02/24 17:30 Acetaminophen 650 mg Q6HP PRN PO 03/02/24 17:30 03/05/24 20:06 650 MG Levofloxacin 50 ml @ 50 mls/hr DAILY@2200 IV 03/04/24 23:00 03/05/24 22:14 50 MLS/HR Saccharomyces Boulardii 250 mg DAILY PO 03/05/24 10:00 03/06/24 09:59 250 MG Pantoprazole Sodium 40 mg DAILY@0600 PO 03/06/24 06:00 03/06/24 05:58 40 MG Metoclopramide HCl 5 mg Q8H IV 03/05/24 16:15 03/06/24 09:59 5 MG Hydralazine HCl 10 mg Q6HP PRN IV 03/05/24 18:15 03/05/24 18:14 10 MG objective General Appearance: Alert, Oriented X3, Cooperative, Mild distress and anxiety HEENT: Atraumatic, PERRLA, EOMI, Mucous membr. moist/pink Respiratory: Clear to auscultation, Normal air movement Cardiovascular: Regular rate, Normal S1, Normal S2, No murmurs Abdominal: Soft, No hepatospenomegaly, No masses Extremities: No clubbing, No cyanosis, No edema, Normal pulses, No tenderness/swelling Skin: No rashes, No breakdown, No significant lesion Neuro: Normal gait, Normal speech, Strength at 5/5 X4 ext, Normal tone, Sensation intact Psych/Mental Status: Mental status NL, Mood NL laboratory and microbiology Laboratory Tests 03/06/24 06:44 Test 03/06/24 06:44 Range/Units Serum Glucose 113 H 74-106 mg/dL Problems(with codes): (1) Campylobacter diarrhea (2) Acute gastritis (3) Urinary tract infection (4) Nausea vomiting and diarrhea (5) Anemia (6) Elevated lactic acid level (7) Gastroenteritis Prognosis Plan Patient appears to be stable for discharge today We can prescribe her oral Levaquin or Cipro for 5-7 days Protonix 40 mg p.o. daily She can follow up in my office as needed Patient stated she had a colonoscopy two years ago which was negative Plan discussed with: Patient WILLIE MANCILLA MD Mar 06, 2024 14:24
== END 2024-03-06 15:15 | disposition home or self-care (01) | DRG 371 ==
LOC: ER 11:03 → OVERFLOW 17:27 → CENTRAL 23:40
PROVIDERS: ADMIT Student in an Organized Health Care Education/Training Program; ATTEND Emergency Medicine
DX: A04.5 Campylobacter enteritis (principal); N17.0 Acute kidney failure with tubular necrosis; E87.20 Acidosis, unspecified; N39.0 Urinary tract infection, site not specified; Z68.41 Body mass index [BMI] 40.0-44.9, adult; K92.1 Melena; D35.01 Benign neoplasm of right adrenal gland; E11.649 Type 2 diabetes mellitus with hypoglycemia without coma; E66.01 Morbid (severe) obesity due to excess calories; E86.0 Dehydration; I12.9 Hypertensive chronic kidney disease with stage 1 through stage 4 chronic kidney disease, or unspecified chronic kidney disease; E11.22 Type 2 diabetes mellitus with diabetic chronic kidney disease; N18.9 Chronic kidney disease, unspecified; E78.5 Hyperlipidemia, unspecified; Z86.73 Personal history of transient ischemic attack (TIA), and cerebral infarction without residual deficits; Z82.49 Family history of ischemic heart disease and other diseases of the circulatory system; Z90.49 Acquired absence of other specified parts of digestive tract; Z88.5 Allergy status to narcotic agent; Z83.3 Family history of diabetes mellitus; Z80.0 Family history of malignant neoplasm of digestive organs; Z79.4 Long term (current) use of insulin
CPT/HCPCS: 36415; 74176; 80048; 80053; 81001; 82270; 82962; 83036; 83605; 83690; 83735; 84484; 85025; 85048; 85610; 85730; 87045; 87086; 87088; 87186; 87427; 93005; G0378; J1815; J2405; J2470; J3490